=== PATIENT | male | born 1965 | race Caucasian/White ===

== ENCOUNTER 2022-12-23 06:10 | Observation (INO) | payer BC ==
[2022-12-19 09:45] LABS: Specific Gravity 1.005 (1.005-1.030); Urine Bilirubin NEGATIVE (Negative); Urine Blood Negative (Negative); Urine Clarity Clear (Clear); Urine Color Colorless (Yellow); Urine Glucose NEGATIVE (Negative); Urine Protein NEGATIVE (Negative); Urine Urobilinogen Normal (Normal); Urine pH 6.5 (5.0-7.0)
[2022-12-19 09:46] LABS: Absolute Lymphocytes (CBC) 1.5 K/uL (0.7-4.9); Hematocrit 49.8 % (39.6-49.0); Lymphocytes % 19.1 % (15.3-44.8); MCV 92.1 fL (80-100); MPV 9.3 fL (7.6-11.3); RBC Red Blood Cell Count 5.41 M/uL (4.33-5.43)
[2022-12-19 09:55] LABS: Protime INR 1.01
[2022-12-19 10:00] LABS: Albumin 3.9 g/dL (3.4-5.0); Bilirubin Total 0.5 mg/dL (0.2-1.0); Potassium 4.4 mmol/L (3.5-5.1)
--- NOTE | 2022-12-19 10:21 | RAD REPORT ---
EXAM DESCRIPTION: [place] (2 Views)12/19/2022 9:55 am CLINICAL HISTORY: Preop for hip replacement COMPARISON: None FINDINGS: The lungs appear clear of acute infiltrate. The heart is normal size Postsurgical changes involve the cervical spine IMPRESSION: No acute abnormalities displayed
--- NOTE | 2022-12-19 13:14 | EKG ---
Test Date: 2022-12-19 Test Time: 09:15:53 Route Process Administrator: BRE MEASUREMENT RESULTS: Intervals: Rate: 70 MN: 142 QRSD: 82 QT: 348 QTc: 375 [place]: P: 69 MN: 142 QRS: 34 T: 48 INTERPRETIVE STATEMENTS: Normal sinus rhythm with sinus arrhythmia Normal ECG Compared to ECG 12/20/1997 19:12:00 No significant changes Electronically Signed On 12-19-22 13:14:15 BILINGUAL RECEPTIONIST by Prabhu Jimenez
[2022-12-22 11:48] LABS: SARS-CoV-2 Antigen Rapid Res Negative (Negative)
[2022-12-23] MEDS ORDERED: GABAPENTIN 100 MG CAP ONE (06:35)
[2022-12-23] MEDS ORDERED: CELECOXIB 100 MG CAPSULE ONE (06:35)
[2022-12-23] MEDS ORDERED: CEFAZOLIN SODIUM 2 GM/VIAL ONE (06:35)
[2022-12-23] MEDS ORDERED: Ringers Lactate 1,000 ML IV ONE ×2 (06:36→09:56)
[2022-12-23] MEDS ORDERED: ACETAMINOPHEN 500 MG TAB ONE (06:36)
[2022-12-23] MEDS ORDERED: Oxycodone HCl/Acetaminophen 1 TAB TAB ONE (06:36)
[2022-12-23] MEDS ORDERED: FENTANYL CITR 100 MCG/2 ML ONE ×2 (06:53→08:20)
[2022-12-23] MEDS ORDERED: MIDAZOLAM HCL 2 MG/2 ML INJ ONE (06:53)
[2022-12-23] MEDS ORDERED: ROCURONIUM 50 MG/5 ML VIAL IV ONE ×2 (06:53→07:40)
[2022-12-23] MEDS ORDERED: propofoL 200 MG/20 ML VIAL IV ONE (06:53)
[2022-12-23] MEDS ORDERED: LIDOCAINE 2% MPF 5 ML VIAL ONE (06:53)
[2022-12-23] MEDS ORDERED: ONDANSETRON 4 MG/2 ML VIAL ONE (06:54)
[2022-12-23] MEDS: TRANEXAMIC ACID 1,000 MG/10 ML VIAL IV ONE ×5 (07:10→09:35)
[2022-12-23] MEDS ORDERED: EPHEDRINE SULF 50 MG/ML VIAL ONE (07:34)
[2022-12-23] MEDS ORDERED: dexAMETHasone 10 MG/ML VIAL ONE ×2 (07:41→11:26)
--- NOTE | 2022-12-23 09:40 | RAD REPORT ---
EXAM DESCRIPTION: RAD - Hip Right 1 View - 12/23/2022 9:20 am FINDINGS: Two views of the right hip were obtained as an intraoperative evaluation. Surgical hardwar e is in place. There is a rasp or trial prosthesis in the proximal femur appearing well positioned. Acetabular cup i s in place. No suspicious or unexpected findings.
[2022-12-23] MEDS ORDERED: HYDROMORPHONE HCL 1 MG/ML INJ ONE (09:44)
[2022-12-23] MEDS ORDERED: Phenylephrine HCl 10 MG/ML 1 ML VIAL ONE (09:51)
[2022-12-23] MEDS ORDERED: KETOROLAC 30 MG/ML INJ ONE (09:54)
[2022-12-23] MEDS ORDERED: HYDROCODONE/APAP 7.5/325 MG TAB PO PRN (10:18)
[2022-12-23] MEDS ORDERED: ONDANSETRON 4 MG/2 ML VIAL IV PRN (10:18)
[2022-12-23] MEDS ORDERED: DOCUSATE NA 100 MG CAP PO PRN (10:18)
--- NOTE | 2022-12-23 10:18 | P.BOP ---
Preoperative diagnosis: right hip arthritis Postoperative diagnosis: same Primary procedure: right total hip arthoplasty Estimated blood loss: 200 Anesthesia: General Complications: None Transferred to: Recovery Room Condition: Good
--- OUTSIDE RECORDS SUMMARY | 2022-12-23 10:46 | XMS REPORT | Continuity of Care Document ---
:1965 Author Organization [facility] t Address [address] [place] [address] Care Team Providers Name Role Phone Brandon Infante MD Primary Care Physician BRANDON INFANTE Attending Clinician Unavailable Lab, [facility] - Db Attending Clinician Unavailable Brandon Infante MD Attending Clinician Doctor Unassigned, [place] Attending Clinician Unavailable RADIOLOGY Attending Clinician Unavailable Radiology Attending Clinician Unavailable Yue Knight MD Attending Clinician Team, [facility], [place] Attending Clinician UnavailKimber Ruggiero LVN Attending Clinician Unavailable HAMIDA SANCHEZ K.HMarie Attending Clinician Unavailable Rich Vera MD Attending Clinician RICH VERA Attending Clinician Unavailable Hamida Sanchez MD K.HMarie Attending Clinician [facility] Attending Clinician Unavailable GIOVANY COURTNEY Attending Clinician Unavailable Clinic, [facility] Neurology Continuity Attending Clinician Unavail able 2, [facility] Attending Clinician Unavailable YUE YAN Admitting Clinician Unavailable BRANDON INFANTE Admitting Clinician Unavailable Payers Payer Name Policy Type Policy Number Effective Date Expiration Date S sonia [facility] - [id number] 2008 00:00:00 OUT OF STATE Problems Condition Condition Condition Status Onset Resolution Last Treating Co mments Source Name Details Category Date Date Treatment Clinician Date Restless Restless Disease Active Unive rs leg leg 8- ity of syndrome syndrome 00:00: [place] 00 Medical Branch Other Other Disease Active Univers chronic chronic 2-21 ity of pain pain 00:00: 00 Medical Branch Hypogonadi Hypogonadi Disease Active U lisbeth sm male sm male 2-26 ity of 00:00: [place] [facility] Sleep Sleep Disease Active Univers apnea apnea 2-19 ity of 00:00: [place] [facility] Gastroesop Gastroesop Disease Active U lisbeth hageal hageal 2-19 ity of reflux reflux 00:00: [place] disease disease 00 Medical without without Branch esophagiti esophagiti s s Allergies, Adverse Reactions, Alerts Allergy Allergy Status Severity Reaction(s) Onset Inactive Treating Comm ents Source Name Type Date Date Clinician NO KNOWN Drug Active Univers ALLERGIE Class ity of S [facility] Social History Social Habit Start Date Stop Date Quantity Comments Source Exposure to 2022-12-01 2022-12-11 Not sure [facility] SARS-CoV-2 00:00:00 07:08:00 [facility] (event) Branch Alcohol intake 2022-12-11 2022-12-11 Current drinker Unive rsity of 00:00:00 00:00:00 of alcohol [facility] (finding) [place] Tobacco use and 2022-06-26 2022-06-26 Smokeless tobacco Un iversity of exposure 00:00:00 00:00:00 non-user [facility] Education 2021-07-17 2021-07-17 10 University of 00:00:00 00:00:00 [facility] History of 2013-01-11 Cigarette Smoker Universi ty of tobacco use 00:00:00 [facility] Sex [birth year] Universit y of 00:00:00 00:00:00 [facility] Smoking Status Start Date Stop Date Source Ex-smoker 2022-06-26 00:00:00 2022-06-26 00:00:00 Universi ty of [facility] Medications Ordered Filled Start Stop Current Ordering Indication Dosage Frequency Signature Comments Components Source Medication Medication Date Date Medication? Clinician (SIG) Name Name testosteron 2022- No [id number] 300mg Univers e cypionate 12-11 ity of (DEPO-TESTO 15:00: 13:57 [place] STERONE) 00 :00 Medical injection Branch 300 mg testosteron 2022- No [id number] 300mg 300 mg, Univers e cypionate 12-11 Intramuscu i ty of (DEPO-TESTO 15:00: 13:57 lar, ONCE, [place] ST[facility]) 00 :00 1 dose, On Medic al injection Jennifer Branch 300 mg 12/11/22 at 0900, Routine testosteron 2022- No [id number] 300mg Univers e cypionate 12-11 ity of (DEPO-TESTO 15:00: 13:57 [place] STERONE) 00 :00 Medical injection Branch 300 mg testosteron 2022- No [id number] 300mg 300 mg, Univers e cypionate 12-11 Intramuscu i ty of (DEPO-TESTO 15:00: 13:57 lar, ONCE, [place] ST[facility]) 00 :00 1 dose, On Medic al injection Jennifer Branch 300 mg 12/11/22 at 0900, Routine HYDROcodone 2022-0 Yes 2745 1{tbl} Take 1 Un papa -acetaminop 1-19 tablet by ity of hen 10-325 00:00: mouth [place] mg tablet 00 every 6 Medical (six) Branch hours as needed for Pain (scale 4-6). Indication s: chronic pain HYDROcodone 2022-0 Yes 2745 1{tbl} Take 1 Un papa -acetaminop 1-19 tablet by ity of hen 10-325 00:00: mouth [place] mg tablet 00 every 6 Medical (six) Branch hours as needed for Pain (scale 4-6). Indication s: chronic pain HYDROcodone 2022-0 Yes 2745 1{tbl} Take 1 Un papa -acetaminop 1-19 tablet by ity of hen 10-325 00:00: mouth [place] mg tablet 00 every 6 Medical (six) Branch hours as needed for Pain (scale 4-6). Indication s: chronic pain HYDROcodone 2022-0 2022- No 2745 1{tbl} Take 1 U nivers -acetaminop 1-19 -19 tablet by it y of hen 10-325 00:00: 00:00 mouth [place] mg tablet 00 :00 every 6 Medical (six) Branch hours as needed for Pain (scale 4-6). Indication s: chronic pain HYDROcodone 2022- No 2745 1{tbl} Take 1 U nivers -acetaminop 12-11 tablet by it y of hen 10-325 00:00: 00:00 mouth [place] mg tablet 00 :00 every 6 Medical (six) Branch hours as needed for Pain (scale 4-6). Indication s: chronic pain HYDROcodone No 2745 1{tbl} Take 1 U nivers -acetaminop 12-11 tablet by it y of hen 10-325 00:00: 00:00 mouth [place] mg tablet 00 :00 every 6 Medical (six) Branch hours as needed for Pain (scale 4-6). Indication s: chronic pain testosteron 2021-11- No [id number] 300mg Univers e cypionate 2-29 12-29 ity of (DEPO-TESTO 15:00: 13:57 [place] STERONE) 00 :00 Medical injection Branch 300 mg testosteron 2021-11- No [id number] 300mg 300 mg, Univers e cypionate 2- 12- Intramuscu i ty of (DEPO-TESTO 15:00: 13:57 lar, ONCE, [place] ST[facility]) 00 :00 1 dose, On Medic al injection Jennifer Branch 300 mg 11/20/22 at 0900, Routine testosteron 2021-11- No [id number] 300mg Univers e cypionate 2-29 12-29 ity of (DEPO-TESTO 15:00: 13:57 [place] STERONE) 00 :00 Medical injection Branch 300 mg testosteron 2021-11- No [id number] 300mg 300 mg, Univers e cypionate 2- 12-29 Intramuscu i ty of (DEPO-TESTO 15:00: 13:57 lar, ONCE, [place] ST[facility]) 00 :00 1 dose, On Medic al injection Jennifer Branch 300 mg 11/20/22 at 0900, Routine HYDROcodone 2021-11 Yes 2745 1{tbl} Take 1 Un papa -acetaminop 2-27 tablet by ity of hen 10-325 00:00: mouth [place] mg tablet 00 every 6 Medical (six) Branch hours as needed for Pain (scale 4-6). Indication s: chronic pain HYDROcodone 2021-11 Yes 2745 1{tbl} Take 1 Un papa -acetaminop 2-27 tablet by ity of hen 10-325 00:00: mouth [place] mg tablet 00 every 6 Medical (six) Branch hours as needed for Pain (scale 4-6). Indication s: chronic pain HYDROcodone 2021-11 Yes 2745 1{tbl} Take 1 Un papa -acetaminop 2-27 tablet by ity of hen 10-325 00:00: mouth [place] mg tablet 00 every 6 Medical (six) Branch hours as needed for Pain (scale 4-6). Indication s: chronic pain HYDROcodone 2021-11 Yes 2745 1{tbl} Take 1 Un papa -acetaminop 2-27 tablet by ity of hen 10-325 00:00: mouth [place] mg tablet 00 every 6 Medical (six) Branch hours as needed for Pain (scale 4-6). Indication s: chronic pain HYDROcodone 2021-11 Yes 2745 1{tbl} Take 1 Un papa -acetaminop 2-27 tablet by ity of hen 10-325 00:00: mouth [place] mg tablet 00 every 6 Medical (six) Branch hours as needed for Pain (scale 4-6). Indication s: chronic pain HYDROcodone 2021-11- No 2745 1{tbl} Take 1 U nivers -acetaminop 2-27 -19 tablet by it y of hen 10-325 00:00: 00:00 mouth [place] mg tablet 00 :00 every 6 Medical (six) Branch hours as needed for Pain (scale 4-6). Indication s: chronic pain HYDROcodone 2021-11- No 2745 1{tbl} Take 1 U nivers -acetaminop 2-27 -19 tablet by it y of hen 10-325 00:00: 00:00 mouth [place] mg tablet 00 :00 every 6 Medical (six) Branch hours as needed for Pain (scale 4-6). Indication s: chronic pain codeine-gua 2021-11 Yes 5mL Take 5 mL U nivers ifenesin 2-21 by mouth ity of 10-100 mg/5 00:00: every 4 [place] as mL oral 00 (four) Medical solution hours as Branch needed for Cough. Indication s: cough codeine-gua 2021-11 Yes 5mL Take 5 mL U nivers ifenesin 2-21 by mouth ity of 10-100 mg/5 00:00: every 4 [place] as mL oral 00 (four) Medical solution hours as Branch needed for Cough. Indication s: cough codeine-gua 2021-11 Yes 5mL Take 5 mL U nivers ifenesin 2-21 by mouth ity of 10-100 mg/5 00:00: every 4 [place] mL oral 00 (four) Medical solution hours as Branch needed for Cough. Indication s: cough codeine-gua 2021-11 Yes 5mL Take 5 mL U nivers ifenesin 2-21 by mouth ity of 10-100 mg/5 00:00: every 4 [place] mL oral 00 (four) Medical solution hours as Branch needed for Cough. Indication s: cough codeine-gua 2021-11 Yes 5mL Take 5 mL U nivers ifenesin 2-21 by mouth ity of 10-100 mg/5 00:00: every 4 [place] mL oral 00 (four) Medical solution hours as Branch needed for Cough. Indication s: cough codeine-gua 2021-11 Yes 5mL Take 5 mL U nivers ifenesin 2-21 by mouth ity of 10-100 mg/5 00:00: every 4 [place] as mL oral 00 (four) Medical solution hours as Branch needed for Cough. Indication s: cough codeine-gua 2021-11 Yes 5mL Take 5 mL U nivers ifenesin 2-21 by mouth ity of 10-100 mg/5 00:00: every 4 [place] as mL oral 00 (four) Medical solution hours as Branch needed for Cough. Indication s: cough codeine-gua 2021-11 Yes 5mL Take 5 mL U nivers ifenesin 2-21 by mouth ity of 10-100 mg/5 00:00: every 4 [place] as mL oral 00 (four) Medical solution hours as Branch needed for Cough. Indication s: cough codeine-gua 2021-11 Yes 5mL Take 5 mL U nivers ifenesin 2-21 by mouth ity of 10-100 mg/5 00:00: every 4 [place] as mL oral 00 (four) Medical solution hours as Branch needed for Cough. Indication s: cough codeine-gua 2021-11 Yes 5mL Take 5 mL U nivers ifenesin 2-21 by mouth ity of 10-100 mg/5 00:00: every 4 [place] as mL oral 00 (four) Medical solution hours as Branch needed for Cough. Indication s: cough codeine-gua 2021-11 Yes 5mL Take 5 mL U nivers ifenesin 2-21 by mouth ity of 10-100 mg/5 00:00: every 4 [place] as mL oral 00 (four) Medical solution hours as Branch needed for Cough. Indication s: cough codeine-gua 2021-11 Yes 5mL Take 5 mL U nivers ifenesin 2-21 by mouth ity of 10-100 mg/5 00:00: every 4 [place] as mL oral 00 (four) Medical solution hours as Branch needed for Cough. Indication s: cough testosteron 2021-11- No [id number] 300mg Univers e cypionate 12-31 ity of (DEPO-TESTO 14:45: 13:50 [place] STERONE) 00 :00 Medical injection Branch 300 mg testosteron 2021-11- No [id number] 300mg 300 mg, Univers e cypionate 12-31 Intramuscu i ty of (DEPO-TESTO 14:45: 13:50 lar, ONCE, [place] STERONE) 00 :00 1 dose, On Medic al injection Jennifer Branch 300 mg 10/30/22 at 0845, Routine testosteron 2021-11- No [id number] 300mg Univers e cypionate 12-31 ity of (DEPO-TESTO 14:45: 13:50 [place] STERONE) 00 :00 Medical injection Branch 300 mg testosteron 2021-11- No [id number] 300mg 300 mg, Univers e cypionate 12-31 Intramuscu i ty of (DEPO-TESTO 14:45: 13:50 lar, ONCE, [place] ST[facility]) 00 :00 1 dose, On Medic al injection Jennifer Branch 300 mg 10/30/22 at 0845, Routine azithromyci 2021-11 Yes [id number] 250mg Take 1 Univers n 250 mg 2- tablet by ity of tablet 00:00: mouth in [place] 00 the Medical morning. Branch Take 500 mg day 1, then 250 mg days 2 to 5. azithromyci 2021- Yes [id number] 250mg Take 1 Univers n 250 mg 2-08 tablet by ity of tablet 00:00: mouth in [place] 00 the Medical morning. Branch Take 500 mg day 1, then 250 mg days 2 to 5. azithromyci 2021- Yes [id number] 250mg Take 1 Univers n 250 mg 2-08 tablet by ity of tablet 00:00: mouth in [place] 00 the Medical morning. Branch Take 500 mg day 1, then 250 mg days 2 to 5. azithromyci 2021- Yes [id number] 250mg Take 1 Univers n 250 mg 2-08 tablet by ity of tablet 00:00: mouth in [place] 00 the Medical morning. Branch Take 500 mg day 1, then 250 mg days 2 to 5. azithromyci 2021- Yes [id number] 250mg Take 1 Univers n 250 mg 2-08 tablet by ity of tablet 00:00: mouth in [place] 00 the Medical morning. Branch Take 500 mg day 1, then 250 mg days 2 to 5. azithromyci 2021- Yes [id number] 250mg Take 1 Univers n 250 mg 2-08 tablet by ity of tablet 00:00: mouth in [place] 00 the Medical morning. Branch Take 500 mg day 1, then 250 mg days 2 to 5. azithromyci 2021- Yes [id number] 250mg Take 1 Univers n 250 mg 2-08 tablet by ity of tablet 00:00: mouth in [place] 00 the Medical morning. Branch Take 500 mg day 1, then 250 mg days 2 to 5. azithromyci 2021- Yes [id number] 250mg Take 1 Univers n 250 mg 2-08 tablet by ity of tablet 00:00: mouth in [place] 00 the Medical morning. Branch Take 500 mg day 1, then 250 mg days 2 to 5. azithromyci 2021- Yes [id number] 250mg Take 1 Univers n 250 mg 2-08 tablet by ity of tablet 00:00: mouth in [place] 00 the Medical morning. Branch Take 500 mg day 1, then 250 mg days 2 to 5. azithromyci 2021-3- No [id number] 250mg Take 1 Univers n 250 mg 2-08 12-11 tablet by ity o f tablet 00:00: 00:00 mouth in [place] 00 :00 the Medical morning. Branch Take 500 mg day 1, then 250 mg days 2 to 5. azithromyci 2021-11- No [id number] 250mg Take 1 Univers n 250 mg 12-31 tablet by ity o f tablet 00:00: 00:00 mouth in [place] 00 :00 the Medical morning. Branch Take 500 mg day 1, then 250 mg days 2 to 5. codeine-gua 2021-11- Yes 5mL Take 5 mL Univers ifenesin 12-31 by mouth ity of 10-100 mg/5 00:00: 05:59 every 4 [place] mL oral 00 :00 (four) Medical solution hours as Branch needed for Cough for up to 7 days. Indication s: cough codeine-gua 2021-11- Yes 5mL Take 5 mL Univers ifenesin 12-31 by mouth ity of 10-100 mg/5 00:00: 05:59 every 4 [place] mL oral 00 :00 (four) Medical solution hours as Branch needed for Cough for up to 7 days. Indication s: cough HYDROcodone 2021-11 Yes 2745 1{tbl} Take 1 Un papa -acetaminop 2-07 tablet by ity of hen 10-325 00:00: mouth [place] mg tablet 00 every 6 Medical (six) Branch hours as needed for Pain (scale 4-6). Indication s: chronic pain HYDROcodone 2021-11 Yes 2745 1{tbl} Take 1 Un papa -acetaminop 2-07 tablet by ity of hen 10-325 00:00: mouth [place] mg tablet 00 every 6 Medical (six) Branch hours as needed for Pain (scale 4-6). Indication s: chronic pain HYDROcodone 2021-11 Yes 2745 1{tbl} Take 1 Un papa -acetaminop 2-07 tablet by ity of hen 10-325 00:00: mouth [place] mg tablet 00 every 6 Medical (six) Branch hours as needed for Pain (scale 4-6). Indication s: chronic pain HYDROcodone 2021-11 Yes 2745 1{tbl} Take 1 Un papa -acetaminop 2-07 tablet by ity of hen 10-325 00:00: mouth [place] mg tablet 00 every 6 Medical (six) Branch hours as needed for Pain (scale 4-6). Indication s: chronic pain HYDROcodone 2021-11 Yes 2745 1{tbl} Take 1 Un papa -acetaminop 2-07 tablet by ity of hen 10-325 00:00: mouth [place] mg tablet 00 every 6 Medical (six) Branch hours as needed for Pain (scale 4-6). Indication s: chronic pain HYDROcodone 2021-11- No 2745 1{tbl} Take 1 U nivers -acetaminop 2-07 12-25 tablet by it y of hen 10-325 00:00: 00:00 mouth [place] mg tablet 00 :00 every 6 Medical (six) Branch hours as needed for Pain (scale 4-6). Indication s: chronic pain HYDROcodone 2021-11 Yes 2745 1{tbl} Take 1 Un papa -acetaminop 1-22 tablet by ity of hen 10-325 00:00: mouth [place] mg tablet 00 every 6 Medical (six) Branch hours as needed for Pain (scale 4-6). Indication s: chronic pain HYDROcodone 2021-11 No 2745 1{tbl} Take 1 U nivers -acetaminop 1-22 12-06 tablet by it y of hen 10-325 00:00: 00:00 mouth [place] mg tablet 00 :00 every 6 Medical (six) Branch hours as needed for Pain (scale 4-6). Indication s: chronic pain testosteron 2021-11- No [id number] 300mg Univers e cypionate 1-17 - ity of (DEPO-TESTO 17:15: 16:18 [place] [facility] :00 Medical injection Branch 300 mg testosteron 2021-11- No [id number] 300mg 300 mg, Univers e cypionate -17 - Intramuscu i ty of (DEPO-TESTO 17:15: 16:18 lar, ONCE, [place] [facility] 00 :00 1 dose, On Medic al injection Jennifer Branch 300 mg 10/09/22 at 1115, Routine testosteron 2021-11- No [id number] 300mg Univers e cypionate -17 - ity of (DEPO-TESTO 17:15: 16:18 [place] STERONE) 00 :00 Medical injection Branch 300 mg testosteron 2021-11- No [id number] 300mg 300 mg, Univers e cypionate 12-09 Intramuscu i ty of (DEPO-TESTO 17:15: 16:18 lar, ONCE, [place] [facility] 00 :00 1 dose, On Medic al injection Jennifer Branch 300 mg 10/09/22 at 1115, Routine rOPINIRole 2021-11 Yes [id number] 1mg Take 1 U nivers 1 mg tablet 1-17 tablet by ity of 00:00: mouth at [place] [address] bedtime. Medical Branch rOPINIRole 2021-11 Yes [id number] 1mg Take 1 U nivers 1 mg tablet 1-17 tablet by ity of 00:00: mouth at [place] [address] bedtime. Medical Branch rOPINIRole 2021-11 Yes [id number] 1mg Take 1 U nivers 1 mg tablet 1-17 tablet by ity of 00:00: mouth at [place] [address] bedtime. Medical Branch rOPINIRole 2021-11 Yes [id number] 1mg Take 1 U nivers 1 mg tablet 1-17 tablet by ity of 00:00: mouth at [place] [address] bedtime. Medical Branch rOPINIRole 2021-11 Yes [id number] 1mg Take 1 U nivers 1 mg tablet 1-17 tablet by ity of 00:00: mouth at [place] [address] bedtime. Medical Branch rOPINIRole 2021-11 Yes [id number] 1mg Take 1 U nivers 1 mg tablet 1-17 tablet by ity of 00:00: mouth at [place] [address] bedtime. Medical Branch rOPINIRole 2021-11 Yes [id number] 1mg Take 1 U nivers 1 mg tablet 1-17 tablet by ity of 00:00: mouth at [place] [address] bedtime. Medical Branch rOPINIRole 2021-11 Yes [id number] 1mg Take 1 U nivers 1 mg tablet 1-17 tablet by ity of 00:00: mouth at [place] [address] bedtime. Medical Branch rOPINIRole 2021-11 Yes [id number] 1mg Take 1 U nivers 1 mg tablet 1-17 tablet by ity of 00:00: mouth at [place] [address] bedtime. Medical Branch rOPINIRole 2021-11 Yes [id number] 1mg Take 1 U nivers 1 mg tablet 1-17 tablet by ity of 00:00: mouth at [place] [address] bedtime. Medical Branch rOPINIRole 2021-11 Yes [id number] 1mg Take 1 U nivers 1 mg tablet 1-17 tablet by ity of 00:00: mouth at [place] [address] bedtime. Medical Branch rOPINIRole 2021-11 Yes [id number] 1mg Take 1 U nivers 1 mg tablet 1-17 tablet by ity of 00:00: mouth at [place] [address] bedtime. Medical Branch rOPINIRole 2021-11 Yes [id number] 1mg Take 1 U nivers 1 mg tablet 1-17 tablet by ity of 00:00: mouth at [place] [address] bedtime. Medical Branch rOPINIRole 2021-11 Yes [id number] 1mg Take 1 U nivers 1 mg tablet 1-17 tablet by ity of 00:00: mouth at [place] [address] bedtime. Medical Branch rOPINIRole 2021-11 Yes [id number] 1mg Take 1 U nivers 1 mg tablet 1-17 tablet by ity of 00:00: mouth at [place] [address] bedtime. Medical Branch rOPINIRole 2021-11 Yes [id number] 1mg Take 1 U nivers 1 mg tablet 1-17 tablet by ity of 00:00: mouth at [place] [address] bedtime. Medical Branch rOPINIRole 2021-11 Yes [id number] 1mg Take 1 U nivers 1 mg tablet 1-17 tablet by ity of 00:00: mouth at [place] [address] bedtime. Medical Branch rOPINIRole 2021-11 Yes [id number] 1mg Take 1 U nivers 1 mg tablet 1-17 tablet by ity of 00:00: mouth at [place] [address] bedtime. Medical Branch lansoprazol 2021-11 Yes [id number] 30mg Take 1 Univers e 30 mg 1-10 capsule by ity of capsule 00:00: mouth in [place] 00 the Medical morning. Branch HYDROcodone 2021-11 Yes [id number] 1{tbl} Take 1 Un papa -acetaminop 1-10 tablet by ity of hen 10-325 00:00: mouth [place] mg tablet 00 every 6 Medical (six) Branch hours as needed for Pain (scale 4-6). Indication s: chronic pain lansoprazol 2021-11 Yes [id number] 30mg Take 1 Univers e 30 mg 1-10 capsule by ity of capsule 00:00: mouth in [place] 00 the Medical morning. Branch lansoprazol 2021-11 Yes [id number] 30mg Take 1 Univers e 30 mg 1-10 capsule by ity of capsule 00:00: mouth in [place] 00 the Medical morning. Branch HYDROcodone 2021-11 Yes 2745 1{tbl} Take 1 Un papa -acetaminop 1-10 tablet by ity of hen 10-325 00:00: mouth [place] mg tablet 00 every 6 Medical (six) Branch hours as needed for Pain (scale 4-6). Indication s: chronic pain lansoprazol 2021-11 Yes [id number] 30mg Take 1 Univers e 30 mg 1-10 capsule by ity of capsule 00:00: mouth in [place] 00 the Medical morning. Branch HYDROcodone 2021-11 Yes [id number] 1{tbl} Take 1 Un papa -acetaminop 1-10 tablet by ity of hen 10-325 00:00: mouth [place] mg tablet 00 every 6 Medical (six) Branch hours as needed for Pain (scale 4-6). Indication s: chronic pain lansoprazol 2021-11 Yes [id number] 30mg Take 1 Univers e 30 mg 1-10 capsule by ity of capsule 00:00: mouth in [place] 00 the Medical morning. Branch lansoprazol 2021-11 Yes [id number] 30mg Take 1 Univers e 30 mg 1-10 capsule by ity of capsule 00:00: mouth in [place] 00 the Medical morning. Branch lansoprazol 2021-11 Yes [id number] 30mg Take 1 Univers e 30 mg 1-10 capsule by ity of capsule 00:00: mouth in [place] 00 the Medical morning. Branch lansoprazol 2021-11 Yes [id number] 30mg Take 1 Univers e 30 mg 1-10 capsule by ity of capsule 00:00: mouth in [place] 00 the Medical morning. Branch lansoprazol 2021-11 Yes [id number] 30mg Take 1 Univers e 30 mg 1-10 capsule by ity of capsule 00:00: mouth in [place] 00 the Medical morning. Branch lansoprazol 2021-11 Yes [id number] 30mg Take 1 Univers e 30 mg 1-10 capsule by ity of capsule 00:00: mouth in [place] 00 the Medical morning. Branch lansoprazol 2021-11 Yes [id number] 30mg Take 1 Univers e 30 mg 1-10 capsule by ity of capsule 00:00: mouth in [place] 00 the Medical morning. [place] lansoprazol 2021-11 Yes [id number] 30mg Take 1 Univers e 30 mg 1-10 capsule by ity of capsule 00:00: mouth in [place] 00 the Medical morning. [place] lansoprazol 2021-11 Yes [id number] 30mg Take 1 Univers e 30 mg 1-10 capsule by ity of capsule 00:00: mouth in [place] 00 the Medical morning. [place] lansoprazol 2021-11 Yes [id number] 30mg Take 1 Univers e 30 mg 1-10 capsule by ity of capsule 00:00: mouth in [place] 00 the Medical morning. [place] lansoprazol 2021-11 Yes [id number] 30mg Take 1 Univers e 30 mg 1-10 capsule by ity of capsule 00:00: mouth in [place] 00 the Medical morning. [place] lansoprazol 2021-11 Yes [id number] 30mg Take 1 Univers e 30 mg 1-10 capsule by ity of capsule 00:00: mouth in [place] 00 the Medical morning. [place] lansoprazol 2021-11 Yes [id number] 30mg Take 1 Univers e 30 mg 1-10 capsule by ity of capsule 00:00: mouth in [place] 00 the Medical morning. [place] lansoprazol 2021-11 Yes [id number] 30mg Take 1 Univers e 30 mg 1-10 capsule by ity of capsule 00:00: mouth in [place] 00 the Medical morning. [place] lansoprazol 2021-11 Yes [id number] 30mg Take 1 Univers e 30 mg 1-10 capsule by ity of capsule 00:00: mouth in [place] 00 the Medical morning. [place] lansoprazol 2021-11 Yes [id number] 30mg Take 1 Univers e 30 mg 1-10 capsule by ity of capsule 00:00: mouth in [place] 00 the Medical morning. [place] HYDROcodone 2021-11- No 2745 1{tbl} Take 1 U nivers -acetaminop 1-10 11-21 tablet by it y of hen 10-325 00:00: 00:00 mouth [place] mg tablet 00 :00 every 6 Medical (six) Branch hours as needed for Pain (scale 4-6). Indication s: chronic pain testosteron 2021-11 No [id number] 300mg Univers e cypionate 0-27 10-27 ity of (DEPO-TESTO 16:15: 15:40 [place] ST[facility]) 00 :00 Medical injection Branch 300 mg testosteron 2021-11 No [id number] 300mg 300 mg, Univers e cypionate 0-27 10-27 Intramuscu i ty of (DEPO-TESTO 16:15: 15:40 lar, ONCE, [place] ST[facility]) 00 :00 1 dose, On Medic al injection Jennifer Branch 300 mg 09/18/22 at 1115, Routine testosteron 2021-11 No [id number] 300mg Univers e cypionate 0-27 10-27 ity of (DEPO-TESTO 16:15: 15:40 [place] ST[facility]) 00 :00 Medical injection Branch 300 mg testosteron 2021-11 No [id number] 300mg 300 mg, Univers e cypionate 0-27 10-27 Intramuscu i ty of (DEPO-TESTO 16:15: 15:40 lar, ONCE, [place] [facility]) 00 :00 1 dose, On Medic al injection Jennifer Branch 300 mg 09/18/22 at 1115, Routine HYDROcodone 2021-11 Yes [id number] 1{tbl} Take 1 Un papa -acetaminop 0-27 tablet by ity of hen 10-325 00:00: mouth [place] mg tablet 00 every 6 Medical (six) Branch hours as needed for Pain (scale 4-6). Indication s: chronic pain HYDROcodone 2021-11 Yes 2745 1{tbl} Take 1 Un papa -acetaminop 0-27 tablet by ity of hen 10-325 00:00: mouth [place] mg tablet 00 every 6 Medical (six) Branch hours as needed for Pain (scale 4-6). Indication s: chronic pain HYDROcodone 2021-11 No 2745 1{tbl} Take 1 U nivers -acetaminop 0-27 11-10 tablet by it y of hen 10-325 00:00: 00:00 mouth [place] mg tablet 00 :00 every 6 Medical (six) Branch hours as needed for Pain (scale 4-6). Indication s: chronic pain HYDROcodone 2021-11 Yes 2745 1{tbl} Take 1 Un papa -acetaminop 0-10 tablet by ity of hen 10-325 00:00: mouth [place] mg tablet 00 every 6 Medical (six) Branch hours as needed for Pain (scale 4-6). Indication s: chronic pain HYDROcodone 2021-11 Yes 2745 1{tbl} Take 1 Un papa -acetaminop 0-10 tablet by ity of hen 10-325 00:00: mouth [place] mg tablet 00 every 6 Medical (six) Branch hours as needed for Pain (scale 4-6). Indication s: chronic pain HYDROcodone 2021-11 No 2745 1{tbl} Take 1 U nivers -acetaminop 0-10 10-27 tablet by it y of hen 10-325 00:00: 00:00 mouth [place] mg tablet 00 :00 every 6 Medical (six) Branch hours as needed for Pain (scale 4-6). Indication s: chronic pain HYDROcodone 2021-11 No 2745 1{tbl} Take 1 U nivers -acetaminop 0-10 10-27 tablet by it y of hen 10-325 00:00: 00:00 mouth [place] mg tablet 00 :00 every 6 Medical (six) Branch hours as needed for Pain (scale 4-6). Indication s: chronic pain testosteron 2021-11 No [id number] 300mg Univers e cypionate 0-06 -06 ity of (DEPO-TESTO 14:45: 14:12 [place] STERONE) 00 :00 Medical injection Branch 300 mg testosteron 2021-11- No [id number] 300mg 300 mg, Univers e cypionate 0-06 08-28 Intramuscu i ty of (DEPO-TESTO 14:45: 14:12 lar, ONCE, [place] STERONE) 00 :00 1 dose, On Medic al injection Jennifer Branch 300 mg 08/28/22 at 0945, Routine testosteron 2021-11- No [id number] 300mg Univers e cypionate 0-06 10-06 ity of (DEPO-TESTO 14:45: 14:12 [place] STERONE) 00 :00 Medical injection Branch 300 mg testosteron 2021-11 No [id number] 300mg 300 mg, Univers e cypionate 006 08-28 Intramuscu i ty of (DEPO-TESTO 14:45: 14:12 lar, ONCE, [place] STERONE) 00 :00 1 dose, On Medic al injection [place] Branch 300 mg 08/28/22 at 0945, Routine HYDROcodone 2021-0 Yes 2745 1{tbl} Take 1 Un papa -acetaminop 9-29 tablet by ity of hen 10-325 00:00: mouth [place] mg tablet 00 every 6 Medical (six) Branch hours as needed for Pain (scale 4-6). Indication s: chronic pain HYDROcodone Yes 2745 1{tbl} Take 1 Un papa -acetaminop 9-29 tablet by ity of hen 10-325 00:00: mouth [place] mg tablet 00 every 6 Medical (six) Branch hours as needed for Pain (scale 4-6). Indication s: chronic pain HYDROcodone Yes 2745 1{tbl} Take 1 Un papa -acetaminop 9-29 tablet by ity of hen 10-325 00:00: mouth [place] mg tablet 00 every 6 Medical (six) Branch hours as needed for Pain (scale 4-6). Indication s: chronic pain HYDROcodone Yes 2745 1{tbl} Take 1 Un papa -acetaminop 9-29 tablet by ity of hen 10-325 00:00: mouth [place] mg tablet 00 every 6 Medical (six) Branch hours as needed for Pain (scale 4-6). Indication s: chronic pain HYDROcodone 2021- No 2745 1{tbl} Take 1 U nivers -acetaminop 9-29 - tablet by it y of hen 10-325 00:00: 00:00 mouth [place] mg tablet 00 :00 every 6 Medical (six) Branch hours as needed for Pain (scale 4-6). Indication s: chronic pain ROPINIROLE Yes [id number] TAKE ONE Univers 1 mg tablet 9-19 TABLET BY ity of 00:00: MOUTH [place] 00 EVERY Medical NIGHT AT Branch BEDTIME ROPINIROLE 2021-0 Yes [id number] TAKE ONE Univers 1 mg tablet 9-19 TABLET BY ity of 00:00: MOUTH [place] 00 EVERY Medical NIGHT AT Branch BEDTIME ROPINIROLE 2022-0 Yes [id number] TAKE ONE Univers 1 mg tablet 9-19 TABLET BY ity of 00:00: MOUTH [place] 00 EVERY Medical NIGHT AT Branch BEDTIME ROPINIROLE 2-0 Yes [id number] TAKE ONE Univers 1 mg tablet 9-19 TABLET BY ity of 00:00: MOUTH [place] 00 EVERY Medical NIGHT AT Branch BEDTIME ROPINIROLE 2-0 Yes [id number] TAKE ONE Univers 1 mg tablet 9-19 TABLET BY ity of 00:00: MOUTH [place] 00 EVERY Medical NIGHT AT Branch BEDTIME ROPINIROLE 2021-0 Yes [id number] TAKE ONE Univers 1 mg tablet 9-19 TABLET BY ity of 00:00: MOUTH [place] 00 EVERY Medical NIGHT AT Branch BEDTIME ROPINIROLE 2021-0 Yes [id number] TAKE ONE Univers 1 mg tablet 9-19 TABLET BY ity of 00:00: MOUTH [place] 00 EVERY Medical NIGHT AT Branch BEDTIME ROPINIROLE 2021-0 Yes [id number] TAKE ONE Univers 1 mg tablet 9-19 TABLET BY ity of 00:00: MOUTH [place] 00 EVERY Medical NIGHT AT Branch BEDTIME ROPINIROLE 2021-0 Yes [id number] TAKE ONE Univers 1 mg tablet 9-19 TABLET BY ity of 00:00: MOUTH [place] 00 EVERY Medical NIGHT AT Branch BEDTIME ROPINIROLE 2021-0 Yes [id number] TAKE ONE Univers 1 mg tablet 9-19 TABLET BY ity of 00:00: MOUTH [place] 00 EVERY Medical NIGHT AT Branch BEDTIME ROPINIROLE 2021-0 Yes [id number] TAKE ONE Univers 1 mg tablet 9-19 TABLET BY ity of 00:00: MOUTH [place] 00 EVERY Medical NIGHT AT Branch BEDTIME ROPINIROLE 2021-0 2- No [id number] TAKE ONE Univers 1 mg tablet 9-19 11-17 TABLET BY it y of 00:00: 00:00 MOUTH [place] 00 :00 EVERY Medical NIGHT AT Branch BEDTIME ROPINIROLE 2021-0 2021- No [id number] TAKE ONE Univers 1 mg tablet 9-19 11-17 TABLET BY it y of 00:00: 00:00 MOUTH [place] 00 :00 EVERY Medical NIGHT AT Branch BEDTIME testosteron 2021-0 2- No [id number] 300mg Univers e cypionate 08-07 ity of (DEPO-TESTO 13:45: 12:48 [place] STERONE) 00 :00 Medical injection Branch 300 mg testosteron 2021- No [id number] 300mg 300 mg, Univers e cypionate 08-07 Intramuscu i ty of (DEPO-TESTO 13:45: 12:48 lar, ONCE, [place] STERONE) 00 :00 1 dose, On Medic al injection Jennifer Branch 300 mg 08/07/22 at 0845, Routine testosteron 2021- No [id number] 300mg Univers e cypionate 08-07 ity of (DEPO-TESTO 13:45: 12:48 [place] STERONE) 00 :00 Medical injection Branch 300 mg testosteron 2021- No [id number] 300mg 300 mg, Univers e cypionate 08-07 Intramuscu i ty of (DEPO-TESTO 13:45: 12:48 lar, ONCE, [place] STERONE) 00 :00 1 dose, On Medic al injection Jennifer Branch 300 mg 08/07/22 at 0845, Routine HYDROcodone Yes 2745 1{tbl} Take 1 Un papa -acetaminop 9-07 tablet by ity of hen 10-325 00:00: mouth [place] mg tablet 00 every 6 Medical (six) Branch hours as needed for Pain (scale 4-6). Indication s: chronic pain HYDROcodone Yes 2745 1{tbl} Take 1 Un papa -acetaminop 9-07 tablet by ity of hen 10-325 00:00: mouth [place] mg tablet 00 every 6 Medical (six) Branch hours as needed for Pain (scale 4-6). Indication s: chronic pain HYDROcodone Yes 2745 1{tbl} Take 1 Un papa -acetaminop 9-07 tablet by ity of hen 10-325 00:00: mouth [place] mg tablet 00 every 6 Medical (six) Branch hours as needed for Pain (scale 4-6). Indication s: chronic pain HYDROcodone Yes 2745 1{tbl} Take 1 Un papa -acetaminop 9-07 tablet by ity of hen 10-325 00:00: mouth [place] mg tablet 00 every 6 Medical (six) Branch hours as needed for Pain (scale 4-6). Indication s: chronic pain HYDROcodone 2021- No 2745 1{tbl} Take 1 U nivers -acetaminop 9-05 31- tablet by it y of hen 10-325 00:00: 00:00 mouth [place] mg tablet 00 :00 every 6 Medical (six) Branch hours as needed for Pain (scale 4-6). Indication s: chronic pain testosteron 2021- No [id number] 300mg Univers e cypionate 07-17 ity of (DEPO-TESTO 13:45: 12:45 [place] STERONE) 00 :00 Medical injection Branch 300 mg testosteron 2021- No [id number] 300mg 300 mg, Univers e cypionate 07-17 Intramuscu i ty of (DEPO-TESTO 13:45: 12:45 lar, ONCE, [place] STERONE) 00 :00 1 dose, On Medic al injection Jennifer Branch 300 mg 07/17/22 at 0845, Routine HYDROcodone Yes 2745 1{tbl} Take 1 Un papa -acetaminop 8-22 tablet by ity of hen 10-325 00:00: mouth [place] mg tablet 00 every 6 Medical (six) Branch hours as needed for Pain (scale 4-6). Indication s: chronic pain HYDROcodone 2021- No 2745 1{tbl} Take 1 U nivers -acetaminop 8-22 - tablet by it y of hen 10-325 00:00: 00:00 mouth [place] mg tablet 00 :00 every 6 Medical (six) Branch hours as needed for Pain (scale 4-6). Indication s: chronic pain LANSOPRAZOL Yes [id number] TAKE ONE Univers E 30 mg 5-02 CAPSULE BY ity of capsule 00:00: MOUTH [place] DAILY Medical Branch LANSOPRAZOL Yes [id number] TAKE ONE Univers E 30 mg 5-02 CAPSULE BY ity of capsule 00:00: MOUTH [place] DAILY Medical Branch LANSOPRAZOL Yes [id number] TAKE ONE Univers E 30 mg 5-02 CAPSULE BY ity of capsule 00:00: MOUTH [place] DAILY Medical Branch LANSOPRAZOL Yes [id number] TAKE ONE Univers E 30 mg 5-02 CAPSULE BY ity of capsule 00:00: MOUTH [place] 00 DAILY Medical Branch LANSOPRAZOL 2021-0 Yes [id number] TAKE ONE Univers E 30 mg 5-02 CAPSULE BY ity of capsule 00:00: MOUTH [place] DAILY Medical Branch LANSOPRAZOL 2021-0 Yes [id number] TAKE ONE Univers E 30 mg 5-02 CAPSULE BY ity of capsule 00:00: MOUTH [place] DAILY Medical Branch LANSOPRAZOL 2021-0 Yes [id number] TAKE ONE Univers E 30 mg 5-02 CAPSULE BY ity of capsule 00:00: MOUTH [place] 00 DAILY Medical Branch LANSOPRAZOL 2021-0 Yes [id number] TAKE ONE Univers E 30 mg 5-02 CAPSULE BY ity of capsule 00:00: MOUTH [place] DAILY Medical Branch LANSOPRAZOL 0 Yes [id number] TAKE ONE Univers E 30 mg 5-02 CAPSULE BY ity of capsule 00:00: MOUTH [place] DAILY Medical Branch LANSOPRAZOL 2021-0 Yes [id number] TAKE ONE Univers E 30 mg 5-02 CAPSULE BY ity of capsule 00:00: MOUTH [place] DAILY Medical Branch LANSOPRAZOL 2021-0 Yes [id number] TAKE ONE Univers E 30 mg 5-02 CAPSULE BY ity of capsule 00:00: MOUTH [place] DAILY Medical Branch LANSOPRAZOL 2021-0 Yes [id number] TAKE ONE Univers E 30 mg 5-02 CAPSULE BY ity of capsule 00:00: MOUTH [place] DAILY Medical Branch LANSOPRAZOL 2021-0 Yes [id number] TAKE ONE Univers E 30 mg 5-02 CAPSULE BY ity of capsule 00:00: MOUTH [place] 00 DAILY Medical Branch LANSOPRAZOL 2021-0 2021- No [id number] TAKE ONE Univers E 30 mg 5-02 11-10 CAPSULE BY ity o f capsule 00:00: 00:00 MOUTH [place] 00 :00 DAILY Medical Branch rOPINIRole 2020-11 Yes [id number] 1mg Take 1 U nivers 1 mg tablet 1-18 tablet by ity of 00:00: mouth at [place] 00 bedtime. Medical Branch rOPINIRole 2020-11 Yes [id number] 1mg Take 1 U nivers 1 mg tablet 1-18 tablet by ity of 00:00: mouth at [place] 00 bedtime. Medical Branch rOPINIRole 2020-2021- No [id number] 1mg Take 1 Univers 1 mg tablet 12-10- tablet by it y of 00:00: 00:00 mouth at [place] 00 :00 bedtime. [facility] Branch rOPINIRole 2020-2021- No [id number] 1mg Take 1 Univers 1 mg tablet 118 - tablet by it y of 00:00: 00:00 mouth at [place] 00 :00 bedtime. [facility] Branch rOPINIRole 2020-2021- No [id number] 1mg Take 1 Univers 1 mg tablet 12-10- tablet by it y of 00:00: 00:00 mouth at [place] 00 :00 bedtime. Medical Branch methylPREDN 2020-0 Yes [id number] 84mg Take 21 Univers ISolone 6-10 [id number] tablets by ity of (MEDROL, 00:00: mouth [place] PING,) 4 mg 00 SEE-INSTRU Med ical tablets CTIONS. Branch follow package directions methylPREDN 2020-0 Yes [id number] 84mg Take 21 Univers ISolone 6-10 [id number] tablets by ity of (MEDROL, 00:00: mouth [place] PING,) 4 mg 00 SEE-INSTRU Med ical tablets CTIONS. Branch follow package directions methylPREDN 2020-0 Yes [id number] 84mg Take 21 Univers ISolone 6-10 [id number] tablets by ity of (MEDROL, 00:00: mouth [place] PING,) 4 mg 00 SEE-INSTRU Med ical tablets CTIONS. Branch follow package directions methylPREDN 2020-0 Yes [id number] 84mg Take 21 Univers ISolone 6-10 [id number] tablets by ity of (MEDROL, 00:00: mouth [place] PING,) 4 mg 00 SEE-INSTRU Med ical tablets CTIONS. Branch follow package directions methylPREDN 2021-0 Yes [id number] 84mg Take 21 Univers ISolone 6-10 [id number] tablets by ity of (MEDROL, 00:00: mouth [place] PING,) 4 mg 00 SEE-INSTRU Med ical tablets CTIONS. Branch follow package directions methylPREDN 2021-0 Yes [id number] 84mg Take 21 Univers ISolone 6-10 [id number] tablets by ity of (MEDROL, 00:00: mouth [place] PING,) 4 mg 00 SEE-INSTRU Med ical tablets CTIONS. Branch follow package directions methylPREDN 2020-0 Yes [id number] 84mg Take 21 Univers ISolone 6-10 [id number] tablets by ity of (MEDROL, 00:00: mouth [place] PING,) 4 mg 00 SEE-INSTRU Med ical tablets CTIONS. Branch follow package directions methylPREDN 0 2- No [id number] 84mg Take 21 Univers ISolone 6-10 - [id number] tablets by ity of (MEDROL, 00:00: 00:00 mouth [place] PING,) 4 mg 00 :00 SEE-INSTRU Med ical tablets CTIONS. Branch follow package directions methylPREDN 0 2021- No [id number] 84mg Take 21 Univers ISolone 6-10 - [id number] tablets by ity of (MEDROL, 00:00: 00:00 mouth [place] PING,) 4 mg 00 :00 SEE-INSTRU Med ical tablets CTIONS. Branch follow package directions fluticasone 0 Yes Univer s 50 3-09 ity of mcg/actuati 00:00: [place] on nasal 00 Medical spray Branch fluticasone 0 Yes Univer s 50 3-09 ity of mcg/actuati 00:00: [place] on nasal 00 Medical spray Branch fluticasone 2015-0 Yes Univer s 50 3-09 ity of mcg/actuati 00:00: [place] on nasal 00 Medical spray Branch fluticasone 2015-0 Yes Univer s 50 3-09 ity of mcg/actuati 00:00: [place] on nasal 00 Medical spray Branch fluticasone 2015-0 Yes Univer s 50 3-09 ity of mcg/actuati 00:00: [place] on nasal 00 Medical spray Branch fluticasone 2015-0 Yes Univer s 50 3-09 ity of mcg/actuati 00:00: [place] on nasal 00 Medical spray Branch fluticasone 2015-0 Yes Univer s 50 3-09 ity of mcg/actuati 00:00: [place] on nasal 00 Medical spray Branch fluticasone 2015-0 Yes Univer s 50 3-09 ity of mcg/actuati 00:00: [place] on nasal 00 Medical spray Branch fluticasone 2015-0 Yes Univer s 50 3-09 ity of mcg/actuati 00:00: [place] on nasal 00 Medical spray Branch fluticasone 2016-0 Yes Univer s 50 3-09 ity of mcg/actuati 00:00: [place] on nasal 00 Medical spray Branch fluticasone [id number] Yes Univer s 50 3-09 ity of mcg/actuati 00:00: [place] on nasal 00 Medical spray Branch fluticasone 2016-0 Yes Univer s 50 3-09 ity of mcg/actuati 00:00: [place] on nasal 00 Medical spray Branch fluticasone 20160 Yes Univer s 50 3-09 ity of mcg/actuati 00:00: [place] on nasal 00 Medical spray Branch fluticasone 20160 Yes Univer s 50 3-09 ity of mcg/actuati 00:00: [place] on nasal 00 Medical spray Branch fluticasone 20160 Yes Univer s 50 3-09 ity of mcg/actuati 00:00: [place] on nasal 00 Medical spray Branch fluticasone 20160 Yes Univer s 50 3-09 ity of mcg/actuati 00:00: [place] on nasal 00 Medical spray Branch fluticasone 20160 Yes Univer s 50 3-09 ity of mcg/actuati 00:00: [place] on nasal 00 Medical spray Branch fluticasone 20160 Yes Univer s 50 3-09 ity of mcg/actuati 00:00: [place] on nasal 00 Medical spray Branch fluticasone 20160 Yes Univer s 50 3-09 ity of mcg/actuati 00:00: [place] on nasal 00 Medical spray Branch fluticasone 2016-0 Yes Univer s 50 3-09 ity of mcg/actuati 00:00: [place] on nasal 00 Medical spray Branch fluticasone 20160 Yes Univer s 50 3-09 ity of mcg/actuati 00:00: [place] on nasal 00 Medical spray Branch fluticasone 20160 Yes Univer s 50 3-09 ity of mcg/actuati 00:00: [place] on nasal 00 Medical spray Branch fluticasone 20160 Yes Univer s 50 3-09 ity of mcg/actuati 00:00: [place] on nasal 00 Medical spray Branch fluticasone 20160 Yes Univer s 50 3-09 ity of mcg/actuati 00:00: [place] on nasal 00 Medical spray Branch fluticasone 20160 Yes Univer s 50 3-09 ity of mcg/actuati 00:00: [place] on nasal 00 Medical spray Branch fluticasone 20160 Yes Univer s 50 3-09 ity of mcg/actuati 00:00: [place] on nasal 00 Medical spray Branch fluticasone 20160 Yes Univer s 50 3-09 ity of mcg/actuati 00:00: [place] on nasal 00 Medical spray Branch fluticasone 20160 Yes Univer s 50 3-09 ity of mcg/actuati 00:00: [place] on nasal 00 Medical spray Branch fluticasone 20160 Yes Univer s 50 3-09 ity of mcg/actuati 00:00: [place] on nasal 00 Medical spray Branch fluticasone 20160 Yes Univer s 50 3-09 ity of mcg/actuati 00:00: [place] on nasal 00 Medical spray Branch fluticasone 0 Yes Univer s 50 3-09 ity of mcg/actuati 00:00: [place] on nasal 00 Medical spray Branch fluticasone 0 Yes Univer s 50 3-09 ity of mcg/actuati 00:00: [place] on nasal 00 Medical spray Branch fluticasone 0 Yes Univer s 50 3-09 ity of mcg/actuati 00:00: [place] on nasal 00 Medical spray Branch Vital Signs Vital Name Observation Time Observation Value Comments Source Systolic blood 2022-12-11 13:21:00 134 mm[Hg] Univer sity [facility] pressure Medical Branch Diastolic blood 2022-12-11 13:21:00 74 [facility]Hg[facility] Medical Branch Heart rate 2022-12-11 13:21:00 72 /min [facility] Body height 2022-12-11 13:21:00 172.7 cm [facility] Body weight 2022-12-11 13:21:00 109.498 kg [facility] BMI 2022-12-11 13:21:00 36.70 kg/m2 [facility] Oxygen saturation 2022-12-11 13:21:00 99 /min [facility] in Arterial blood Medical Br anch by Pulse oximetry Systolic blood 2022-11-20 13:37:00 148 mm[Hg] [facility]ity [facility] [place] pressure Medical Branch Diastolic blood 2022-11-20 13:37:00 77 mm[Hg] Unive rsity of [place] pressure Medical Branch Heart rate 2022-11-20 13:21:00 66 /min [facility] [place] [facility] Body height 2022-11-20 13:21:00 172.7 cm [facility] [place] [facility] Body weight 2022-11-20 13:21:00 113.036 kg [facility] [place] [facility] BMI 2022-11-20 13:21:00 37.89 kg/m2 [facility] [place] [facility] Oxygen saturation 2022-11-20 13:21:00 98 /min Uni versity of [place] in Arterial blood Medical Br anch by Pulse oximetry Systolic blood 2022-10-30 13:31:00 160 mm[Hg] Univer sity of [place] pressure Medical Branch Diastolic blood 2022-10-30 13:31:00 91 mm[Hg] Unive rsity of [place] pressure Medical Branch Heart rate 2022-10-30 13:23:00 74 /min [facility] [place] [facility] Body weight 2022-10-30 13:23:00 113.354 kg [facility] [place] [facility] BMI 2022-10-30 13:23:00 38.00 kg/m2 [facility] [place] [facility] Oxygen saturation 2022-10-30 13:23:00 97 /min Uni versity of [place] in Arterial blood Medical Br anch by Pulse oximetry Systolic blood 2022-10-09 15:57:00 146 mm[Hg] Univer sity of [place] pressure Medical Branch Diastolic blood 2022-10-09 15:57:00 80 mm[Hg] Unive rsity of [place] pressure Medical Branch Heart rate 2022-10-09 15:56:00 76 /min [facility] [place] [facility] Body height 2022-10-09 15:56:00 172.7 cm [facility] [place] [facility] Body weight 2022-10-09 15:56:00 113.218 kg [facility] [place] [facility] BMI 2022-10-09 15:56:00 37.95 kg/m2 [facility] [place] [facility] Oxygen saturation 2022-10-09 15:56:00 98 /min Uni versity of [place] in Arterial blood Medical Br anch by Pulse oximetry Systolic blood 2022-09-18 15:03:00 133 mm[Hg] Univer sity of [place] pressure Medical Branch Diastolic blood 2022-09-18 15:03:00 75 mm[Hg] Unive rsity of [place] pressure Medical Branch Heart rate 2022-09-18 15:02:00 80 /min [facility] [place] [facility] Body height 2022-09-18 15:02:00 172.7 cm [facility] [place] [facility] Body weight 2022-09-18 15:02:00 112.946 kg [facility] [place] [facility] BMI 2022-09-18 15:02:00 37.86 kg/m2 [facility] [place] [facility] Oxygen saturation 2022-09-18 15:02:00 98 /min Uni versity of [place] in Arterial blood Medical Br anch by Pulse oximetry Systolic blood 2022-08-28 13:15:00 165 mm[Hg] Univer sity of [place] pressure Medical Branch Diastolic blood 2022-08-28 13:15:00 90 mm[Hg] [facility]ive rsity of [place] pressure Medical Branch Heart rate 2022-08-28 13:14:00 72 /min [facility] [place] [facility] Body weight 2022-08-28 13:14:00 114.76 kg [facility] [place] [facility] BMI 2022-08-28 13:14:00 38.47 kg/m2 [facility] [place] [facility] Oxygen saturation 2022-08-28 13:14:00 97 /min Uni versity of [place] in Arterial blood Medical Br anch by Pulse oximetry Systolic blood 2022-08-07 12:25:00 146 mm[Hg] Univer sity of [place] pressure Medical Branch Diastolic blood 2022-08-07 12:25:00 83 mm[Hg] [facility]ive rsity of [place] pressure Medical Branch Heart rate 2022-08-07 12:24:00 76 /min [facility] [place] [facility] Body weight 2022-08-07 12:24:00 113.399 kg [facility] [place] [facility] BMI 2022-08-07 12:24:00 38.01 kg/m2 [facility] [place] [facility] Systolic blood 2022-07-17 12:24:00 149 mm[facility]Hg] [facility] Diastolic blood 2022-07-17 12:24:00 80 mm[Hg] [facility] pressure [facility] Heart rate 2022-07-17 12:14:00 70 /min [facility] Body height 2022-07-17 12:14:00 172.7 cm [facility] Body weight 2022-07-17 12:14:00 111.313 kg [facility] BMI 2022-07-17 12:14:00 37.31 kg/m2 [facility] Oxygen saturation 2022-07-17 12:14:00 97 /min [facility] in Arterial blood [facility] anch by Pulse oximetry Procedures Procedure Date / Time Performed Performing Clinician [facility] e BASIC METABOLIC PANEL 2022-12-11 14:07:00 Brandon Infante [facility] (NA, K, CL, CO2, Medical Branch GLUCOSE, BUN, CREATININE, CA) CBC WITH DIFF 2022-12-11 14:07:00 Brandon Infante [place] [facility] MR HIP RIGHT WO 2022-11-14 20:42:00 Requisition, Paper [facility] CONTRAST [facility] MR LUMBAR SPINE WO 2022-09-10 13:53:08 Brandon Infante [facility] CONTRAST [facility] CONSENT/REFUSAL FOR 2022-08-28 13:02:58 Doctor Unassigned, No Un [facility] DIAGNOSIS AND Name [facility] Branch TREATMENT Encounters Start End Encounter Admission Attending Care Care Encounter Source Date/Time Date/Time Type Type Clinicians Facility Department ID 2023-02-12 2023-02-12 Outpatient Desi [facility]TE [facility] [id number] Univers 07:30:00 07:30:00 [facility] 2023-01-22 2023-01-22 Outpatient Desi [facility] [id number] Univers 07:30:00 07:30:00 [facility] 2023-01-01 2023-01-01 Outpatient Desi [facility] [id number] Univers 07:45:00 07:45:00 [facility] 2022-12-11 2022-12-11 Service Officer Lab, Ang - Db [facility] [id number] Univers 08:00:00 08:15:00 Visit Brandon Infante [facility] [id number] ity of [place] [id number] Mauricio as BRYAN?BLEA [id number] Md nakia GHOTRA [address] [place] MEDICAL OFFICE BUILDING 2022-12-11 2022-12-11 [facility] [id number] Univers 07:45:00 08:01:00 Visit [facility] [id number] it y of [place] [id number] Mauricio as BRYAN?BLEA [id number] [facility] [address] [facility] 2022-12-11 2022-12-11 Outpatient R ARELIS [facility] [id number] Univers 07:45:00 08:01:00 [facility]ON [facility] 2022-12-11 2022-12-11 Telephone [facility] [id number] Univers 00:00:00 00:00:00 [facility] [id number] it y of [place] [id number] Mauricio as BRYAN?BLEA [id number] [address] [facility] 2022-12-11 2022-12-11 [facility]phone [facility] [id number] Univers 00:00:00 00:00:00 Brandon HEALTH [id number] it y of [place] [id number] Mauricio as BRYAN?BLEA [id number] [facility] [address] MEDICAL [facility]ICE [facility] 2022-12-06 2022-12-06 Refill Arelis [facility] [id number] Univers 00:00:00 00:00:00 Brandon HEALTH [id number] it y of [place] [id number] Mauricio as BRYAN?BLEA [id number] [address] MEDICAL OFFICE BUILDING 2022-12-04 2022-12-04 Refill Doctor [facility] [id number] Univers 00:00:00 00:00:00 Unassigned, HEALTH [id number] ity of [place] [id number] Mauricio as BRYAN?BLEA [id number] [facility] [address] [place] [address] [facility]ICE [facility] 2022-11-20 2022-11-20 Outpatient R ARELIS [facility] [id number] Univers 09:45:00 13:05:24 BRANDON ity of [facility] 2022-11-20 2022-11-20 Office [facility] [id number] Univers 09:45:00 13:05:24 Visit [place] HEALTH 350.1.13.10 it y of [place] 4.2.7.2.686 Mauricio as BRYAN?BLEA [phone] [facility] [address] [facility] 2022-11-16 2022-11-16 Refill Doctor [facility] 1.2.840.114 [id number] Univers 00:00:00 00:00:00 Unassigned, HEALTH 350.1.13.10 ity of [place] 4.2.7.2.686 Mauricio as BRYAN?BLEA [id number] [address] [facility] 2022-11-14 2022-11-14 Outpatient R RADIOLOGY [facility] [id number] Univers 13:38:13 23:59:00 ity of [facility] 2022-11-14 2022-11-14 Hospital Radiology [facility] 1.2.840.114 [id number] Univers 13:30:00 23:59:00 Encounter SPECIALTY 350.1.13.10 ity of [place] [id number] Md nakia BURNS 804 [facility] 2022-11-11 2022-11-11 Refill Doctor [facility] 1.2.840.114 [id number] Univers 00:00:00 00:00:00 Unassigned, HEALTH 350.1.13.10 ity of [place] 4.2.7.2.686 Mauricio as BRYAN?BLEA [id number] Md dical [address] MEDICAL OFFICE BUILDING 2022-10-30 2022-10-30 Outpatient Desi INFANTE [facility] [id number] Univers 07:45:00 08:01:24 BRANDON packer [facility] 2022-10-30 2022-10-30 [facility] 1.2.840.114 [id number] Univers 07:45:00 08:01:24 Visit [place] HEALTH 350.1.13.10 it y of [place] 4.2.7.2.686 Mauricio as BRYAN?BLEA [id number] [address] [facility] 2022-10-28 2022-10-28 Refill Doctor [facility] 1.2.840.114 [id number] Univers 00:00:00 00:00:00 Unassigned, HEALTH 350.1.13.10 ity of [place] 4.2.7.2.686 Mauricio as BRYAN?BLEA [id number] [address] [facility] 2022-10-21 2022-10-21 [facility] [id number] Univers 07:30:00 07:30:00 BRANDON packer [facility] 2022-10-13 2022-10-13 Refill Antonia [facility] 1.2.840.114 [id number] Univers 00:00:00 00:00:00 [facility] 350.1.13.10 it y of [place] 4.2.7.2.686 Mauricio as BRYAN?BLEA [phone] [address] [facility] 2022-10-09 2022-10-09 Outpatient [facility] [id number] Univers 10:00:00 10:30:56 BRANDON packer [facility] 2022-10-09 2022-10-09 [facility] 1.2.840.114 [id number] Univers 10:00:00 10:30:56 Visit [facility] 350.1.13.10 it y of [place] 4.2.7.2.686 Mauricio as BRYAN?BLEA [id number] [address] [facility] 2022-10-02 2022-10-02 Refill Doctor [facility] 1.2.840.114 [id number] Univers 00:00:00 00:00:00 Unassigned, HEALTH 350.1.13.10 ity of [place] 4.2.7.2.686 Mauricio as BRYAN?BLEA [id number] [address] [facility] 2022-10-02 2022-10-02 Refill Doctor [facility] 1.2.840.114 [id number] Univers 00:00:00 00:00:00 Unassigned, HEALTH 350.1.13.10 ity of [place] 4.2.7.2.686 Mauricio as BRYAN?BLEA [id number] [address] [facility] 2022-09-18 2022-09-18 Outpatient [facility] [id number] Univers 10:00:00 10:39:22 BRANDON ittrinity [facility] 2022-09-18 2022-09-18 Office [facility] 1.2.840.114 [id number] Univers 10:00:00 10:39:22 Visit [facility] 350.1.13.10 it y of [place] 4.2.7.2.686 Mauricio as BRYAN?BLEA [id number] [address] [facility] 2022-09-10 2022-09-10 Outpatient [facility] [id number] Univers 07:55:42 23:59:00 BRANDON ity [facility] 2022-09-10 2022-09-10 [facility] 1.2.840.114 [id number] Univers 07:55:42 23:59:00 Encounter Brandon BAKER 350.1.13.10 ity of [place] 4.2.7.2.686 [place] [facility] [id number] [address] 2022-08-31 2022-08-31 [facility] 1.2.840.114 [id number] Univers 00:00:00 00:00:00 Yue HEALTH 350.1.13.10 it y of [place] 4.2.7.2.686 Mauricio as BRYAN?BLEA [phone] [address] [facility] 2022-08-28 2022-08-28 Outpatient R ARELIS [facility] [id number] Univers 08:45:00 08:50:20 BRANDON ittrinity [facility] 2022-08-28 2022-08-28 Office Arelis [facility] 1.2.840.114 [id number] Univers 08:45:00 08:50:20 Visit [facility] 350.1.13.10 it y [facility] 4.2.7.2.686 Mauricio as BRYAN?BLEA [id number] [address] [facility] 2022-08-28 2022-08-28 Orders Doctor ANNE-MARIE 1.2.840.114 [id number] Univers 00:00:00 00:00:00 Only Unassigned, SOILA 350.1.13.10 ity of [place] [facility] 4.2.7.2.686 Mauricio as [id number] [address] 2022-08-21 2022-08-21 Refill Doctor [facility] 1.2.840.114 [id number] Univers 00:00:00 00:00:00 Unassigned, HEALTH 350.1.13.10 ity of [place] [facility] 4.2.7.2.686 Mauricio as BRYAN?BLEA [id number] [address] [facility] 2022-08-09 2022-08-09 Refill Arelis [facility] 1.2.840.114 [id number] Univers 00:00:00 00:00:00 [place] HEALTH 350.1.13.10 it y of [facility] 4.2.7.2.686 Mauricio as BRYAN?BLEA [id number] [address] [facility] 2022-08-07 2022-08-07 Outpatient R ARELIS [facility] [id number] Univers 07:45:00 07:48:02 BRANDON ittrinity [facility] 2022-08-07 2022-08-07 Office Arelis [facility] 1.2.840.114 [id number] Univers 07:45:00 07:48:02 Visit [place] HEALTH 350.1.13.10 it y of [place] 4.2.7.2.686 Mauricio as BRYAN?BLEA [id number] [address] [facility] 2022-08-07 2022-08-07 Outpatient Desi INFANTE [facility] [id number] Univers 07:45:00 07:45:00 BRANDON packer [facility] 2022-07-29 2022-07-29 Refill Doctor [facility] 1.2.840.114 [id number] Univers 00:00:00 00:00:00 Unassigned, HEALTH 350.1.13.10 ity of [place] 4.2.7.2.686 Mauricio as BRYAN?BLEA [id number] [address] [facility] 2022-07-24 2022-07-24 Outpatient Desi INFANTE [facility] [id number] Univers 13:00:00 23:59:00 BRANDON packer [facility] 2022-07-17 2022-07-17 Outpatient Desi INFANTE [facility] [id number] Univers 07:45:00 07:47:17 BRANDON packer [facility] 2022-07-17 2022-07-17 [facility] 1.2.840.114 [id number] Univers 07:45:00 07:47:17 Visit [place] [facility] 350.1.13.10 it y of [place] 4.2.7.2.686 Mauricio as BRYAN?BLEA [id number] [address] [facility] 2022-07-13 2022-07-13 Refill Doctor [facility] 1.2.840.114 [id number] Univers 00:00:00 00:00:00 Unassigned, HEALTH 350.1.13.10 ity of [place] 4.2.7.2.686 Mauricio as BRYAN?BLEA [id number] [address] [facility] 2022-06-26 2022-06-26 Outpatient Desi INFANTE [facility] [id number] Univers 07:30:00 07:47:49 BRANDON packer [facility] 2022-06-26 2022-06-26 Office Arelis [facility] 1.2.840.114 [id number] Univers 07:30:00 07:47:49 Visit [place] HEALTH 350.1.13.10 it y of [place] 4.2.7.2.686 Mauricio as BRYAN?BLEA [id number] [address] [facility] 2022-06-09 2022-06-09 Telephone Team, [facility] ANNE-MARIE 1.2.840.114 [id number] Univers 00:00:00 00:00:00 Health SOILA 350.1.13.10 it y of [facility] 4.2.7.2.686 [place] [id number] [address] 2022-06-09 2022-06-09 Refill Doctor [facility] 1.2.840.114 [id number] Univers 00:00:00 00:00:00 Unassigned, HEALTH 350.1.13.10 ity of [place] 4.2.7.2.686 Mauricio as BRYAN?BLEA [id number] [address] [facility] 2022 2022 Outpatient Desi INFANTE [facility] [id number] Univers 09:30:00 09:30:00 BRANDON packer [facility] 2022 2022 Outpatient Desi INFANTE, [facility] [id number] Univers 09:30:00 09:30:00 BRANDON packer [facility] 2022 2022 Office [facility] 1.2.840.114 [id number] Univers 08:15:00 08:59:17 Visit [place] HEALTH 350.1.13.10 it y of [facility] 4.2.7.2.686 Mauricio as BRYAN?BLEA [id number] [address] [facility] 2022 2022 Outpatient Desi INFANTE [facility] [id number] Univers 08:15:00 08:59:17 BRANDON packer [facility] 2022 2022 Outpatient Desi INFANTE [facility] [id number] Univers 08:15:00 08:59:17 BRANDON packer [facility] 2022 2022 Outpatient R ARELIS [facility] [id number] Univers 08:15:00 08:15:00 BRANDON packer [facility] 2022-05-28 2022-05-28 Telephone Arelis [facility] 1.2.525.469 [id number] Univers 00:00:00 00:00:00 [facility] 350.1.13.10 it y of [place] 4.2.7.2.686 Mauricio as BRYAN?BLEA [id number] [address] [facility] 2022-05-08 2022-05-08 Outpatient R ARELIS [facility] [id number] Univers 09:45:00 10:13:59 BRANDON packer [facility] 2022-05-08 2022-05-08 Office [facility] 1.2.840.114 [id number] Univers 09:45:00 10:13:59 Visit [facility] 350.1.13.10 it y [facility] 4.2.7.2.686 Mauricio as BRYAN?BLEA [id number] [address] [facility] 2022-05-08 2022-05-08 Outpatient R ARELIS [facility] [id number] Univers 09:45:00 10:13:59 BRANDON packer [facility] 2022-05-01 2022-05-01 [facility] 1.2.840.114 [id number] Univers 00:00:00 00:00:00 Secure Msg [facility] 350.1.13.10 ity of [place] 4.2.7.2.686 Mauricio as BRYAN?BLEA [id number] [address] MEDICAL OFFICE BUILDING 2022-04-17 2022-04-17 Office [facility] 1.2.840.114 [id number] Univers 10:00:00 10:00:00 Visit [facility] 350.1.13.10 it y of [place] 4.2.7.2.686 Mauricio as BRYAN?BLEA [id number] [address] MEDICAL OFFICE BUILDING 2022-04-17 2022-04-17 Outpatient Desi INFANTE [facility] [id number] Univers 10:00:00 [facility]:48:24 [facility] 2022-04-17 2022-04-17 Outpatient Desi INFANTE [facility] [id number] Univers 07:30:00 07:30:00 [facility] 2022-04-17 2022-04-17 Outpatient Desi INFANTE [facility] [id number] Univers 07:30:00 07:30:00 [facility] 2022-04-14 2022-04-14 Patient Kimber Dos Santos [facility] 1.2.840.114 [id number] Univers 00:00:00 00:00:00 Secure [facility]ALTH 350.1.13.10 ity of [place] 4.2.7.2.686 Mauricio as BRYAN?BLEA [id number] [address] [facility] 2022-03-27 2022-03-27 Outpatient Desi INFANTE [facility] [id number] Univers 09:45:00 09:45:00 [facility] 2022-03-24 2022-03-24 [facility] 1.2.840.114 [id number] Univers 14:30:00 15:41:48 Visit [facility] 350.1.13.10 it y of [place] 4.2.7.2.686 Mauricio as BRYAN?BLEA [id number] [address] [facility] 2022-03-24 2022-03-24 Outpatient Desi INFANTE [facility] [id number] Univers 14:30:00 15:41:48 [facility] 2022-03-24 2022-03-24 Outpatient Desi INFANTE [facility] [id number] Univers 14:30:00 14:30:00 [facility] 2022-03-22 2022-03-22 Refill Arelis [facility] 1.2.840.114 [id number] Univers 00:00:00 00:00:00 [facility] 350.1.13.10 it y of [place] 4.2.7.2.686 Mauricio as BRYAN?BLEA [id number] Md nakia [address] [facility] 2022-03-06 2022-03-06 Outpatient Desi ARELIS [facility] [id number] Univers 09:45:00 10:22:12 BRANDON packer [facility] 2022-03-06 2022-03-06 Office [facility] 1.2.840.114 [id number] Univers 09:45:00 10:22:12 Visit [facility] 350.1.13.10 it y of [place] 4.2.7.2.686 Mauricio as BRYAN?BLEA [id number] [address] [facility] 2022-02-20 2022-02-20 Refill Doctor [facility] 1.2.840.114 [id number] Univers 00:00:00 00:00:00 Unassigned, HEALTH 350.1.13.10 ity of [place] 4.2.7.2.686 Mauricio as BRYAN?BLEA [phone] [facility] [address] [facility] 2022-02-06 2022-02-06 Outpatient Desi INFANTE [facility] [id number] Univers 09:30:00 10:03:56 BRANDON packer [facility] 2022-02-06 2022-02-06 [facility] 1.2.840.114 [id number] Univers 09:30:00 10:03:56 Visit [facility] 350.1.13.10 it y of [place] 4.2.7.2.686 Mauricio as BRYAN?BLEA [id number] [address] [facility] 2022-02-06 2022-02-06 Outpatient eDsi INFANTE [facility] [id number] Univers 09:30:00 09:30:00 BRANDON packer [facility] 2022-01-16 2022-01-16 Outpatient Desi INFANTE [facility] [id number] Univers 12:00:00 08:22:41 BRANDON packer [facility] 2022-01-09 2022-01-09 Outpatient Desi INFANTE [facility] [id number] Univers 07:30:00 07:30:00 BRANDON packer [facility] 2022-01-06 2022-01-06 Patient Arelis [facility] 1.2.840.114 [id number] Univers 00:00:00 00:00:00 Secure Msg [facility] 350.1.13.10 ity of [place] 4.2.7.2.686 Mauricio as BRYAN?BLEA [id number] [address] [facility] 2021-12-16 2021-12-16 [facility] [id number] Univers 07:45:00 08:16:30 BRANDON packer [facility] 2021-12-16 2021-12-16 [facility] 1.2.840.114 [id number] Univers 07:45:00 08:16:30 Visit [facility] 350.1.13.10 it y [facility] 4.2.7.2.686 Mauricio as BRYAN?BLEA [id number] [address] [facility] 2021-11-21 2021-11-21 Outpatient R ARELIS [facility] [id number] Univers 12:00:00 12:25:16 BRANDON packer [facility] 2021-11-21 2021-11-21 [facility] 1.2.840.114 [id number] Univers 12:00:00 12:25:16 Visit [facility] 350.1.13.10 it y of [place] 4.2.7.2.686 Mauricio as BRYAN?BLEA [id number] [address] [facility] 2021-10-30 2021-10-30 [facility] [id number] Univers 10:00:00 10:14:54 BRANDON packer [facility] 2021-10-30 2021-10-30 [facility] 1.2.840.114 [id number] Univers 09:43:03 10:14:54 Visit [facility] 350.1.13.10 it y of [place] 4.2.7.2.686 Mauricio as BRYAN?BLEA [id number] [address] [facility] 2021-10-25 2021-10-25 Outpatient R LAURA, [facility] [id number] Univers 13:00:00 13:00:00 SENDMODESTA packer [facility] 2021-10-10 2021-10-10 [facility] 1.2.840.114 [id number] Univers 12:30:25 13:09:50 Visit [facility] 350.1.13.10 it y of [place] 4.2.7.2.686 Mauricio as BRYAN?BLEA [id number] [address] [facility] 2021-10-10 2021-10-10 Outpatient R ARELIS [facility] [id number] Univers 12:30:00 13:09:50 BRANDON packer [facility] 2021-10-10 2021-10-10 Outpatient R ARELIS [facility] [id number] Univers 12:30:00 13:09:50 BRANDON packer [facility] 2021-09-19 2021-09-19 [facility] 1.2.840.114 [id number] Univers 09:32:18 10:12:01 Visit [facility] 350.1.13.10 it y of [place] 4.2.7.2.686 Mauricio as BRYAN?BLEA [id number] [address] [facility] 2021-09-19 2021-09-19 Outpatient R ARELIS [facility] [id number] Univers 09:30:00 10:12:01 BRANDON packer [facility] 2021-09-19 2021-09-19 Outpatient R ARELIS, [facility] [id number] Univers 09:30:00 09:30:00 BRANDON trinity [facility] 2021-08-29 2021-08-29 [facility] 1.2.840.114 [id number] Univers 09:27:40 09:58:38 Visit [facility] 350.1.13.10 it y of [place] 4.2.7.2.686 Mauricio as Bryan?Blea [id number] [address] Medical Office [facility] 2021-08-29 2021-08-29 Outpatient R ARELIS [facility] [id number] Univers 09:45:00 09:45:00 BRANDON allentrinity [facility] 2021-08-09 2021-08-09 [facility] 1.2.840.114 [id number] Univers 10:09:28 23:59:00 Encounter [place] 350.1.13.10 ity of [place] 4.2.7.2.686 [facility] [id number] [facility] [address] [place] [address] 2021-08-09 2021-08-09 [facility] 1.2.840.114 [id number] Univers 10:: 23:59:00 Encounter [place] 350.1.13.10 ity of [place] 4.2.7.2.686 [facility] [id number] [address] 2021-08-09 2021-08-09 Outpatient R [facility] [id number] Univers 00:00:00 00:00:00 ity of [facility] 2021-08-08 2021-08-08 Office [facility] 1.2.840.114 [id number] Univers 09:10:30 09:49:33 Visit [facility] 350.1.13.10 it y of [place] 4.2.7.2.686 Mauricio as Bryan?Blea [phone] [address] Medical Office Building 2021-08-08 2021-08-08 Outpatient Desi INFANTE [facility] [id number] Univers 09:30:00 09:30:00 BRANDON birdie [facility] 2021-08-08 2021-08-08 Orders Doctor XIE 1.2.840.114 [id number] Univers 00:00:00 00:00:00 Only UnassignedSOILA 350.1.13.10 ity of [place] [facility] 4.2.7.2.686 Mauricio as [id number] [facility] [address] [place] 2021-08-08 2021-08-08 Orders Doctor XIE 1.2.840.114 [id number] Univers 00:00:00 00:00:00 Only Unassigned, SOILA 350.1.13.10 ity of [place] [facility] 4.2.7.2.686 Mauricio as [id number] [address] 2021-07-22 2021-07-22 Telephone FanRich asher [facility] 1.2.840.11 [id number] Univers 00:00:00 00:00:00 Y HEALTH 350.1.13.10 i ty [place] [id number] [address] 2021-07-22 2021-07-22 [facility] 1.2.840.114 [id number] Univers 00:00:00 00:00:00 Health 350.1.13.10 it y of [place].2.[place] Eduardo [id number] [address] Office Building 2021-07-22 2021-07-22 Telephone [facility] 1.2.840.11 [id number] Univers 00:00:00 00:00:00 Y HEALTH 350.1.13.10 i ty of [place] [id number] [address] 2021-07-22 2021-07-22 Telephone [facility] 1.2.840.114 [id number] Univers 00:00:00 00:00:00 Health 350.1.13.10 it y of [place]2.[place] Eduardo [id number] [address] Office Building 2021-07-18 2021-07-18 Office Arelis [facility] 1.2.840.114 [id number] Univers 09:12:17 09:58:35 Visit [facility] 350.1.13.10 it y of [place] 4.2.7.2.686 Mauricio as Bryan?Blea [phone] Md nakia ghotra [address] [place] [address] Office Building 2021-07-18 2021-07-18 Outpatient R ARELIS [facility] [id number] Univers 09:45:00 09:45:00 BRANDON packer of [facility] 2021-07-17 2021-07-17 [facility], [facility] 1.2.840.114 [id number] Univers 12:07:43 23:59:00 Encounter Hamida HernandesMell Y HEALTH 350.1.13.10 ity of [place] 4[place]2.7.2.[place] [id number] [facility] [address] 2021-07-17 2021-07-17 Service Officer [facility]ERS[facility] 1.2.840.114 [id number] Univers 15:43:05 15:58:05 Visit Rich Vera HEALTH 350.1.13.10 ity of [place] 4[place]2.[place].2.[place] [id number] [facility] [address] 2021-07-17 2021-07-17 Service Officer [facility] 1.2.840.114 [id number] Univers 15:43:05 15:58:05 Visit Rich Vera HEALTH 350.1.13.10 ity of [place] 4[place].2.[place] [id number] [facility] [address] [place] 2021-07-17 2021-07-17 Outpatient R RICH VERA [facility] [id number] Univers 14:00:00 14:00:00 ity of [facility] 2021-07-17 2021-07-17 Office Rich Vera [facility] 1.2.840.114 [id number] Univers 12:30:26 13:30:26 Visit HEALTH 350.1.13.10 i ty of [place] 4[place] [id number] [facility] [address] 2021-07-17 2021-07-17 Office Rich Vera [facility] 1.2.840.114 [id number] Univers 12:30:26 13:30:26 Visit HEALTH 350.1.13.10 i ty of [place] 4[place]2.[place] [phone] [id number] [place] 2021-07-17 2021-07-17 Office Rich Vera [facility] 1.2.840.114 [id number] Univers 12:30:26 13:30:26 Visit Y HEALTH 350.1.13.10 i ty [phone] [place] [id number] [place] 2021-06-27 2021-06-27 [facility] 1.2.840.114 [id number] Univers 10:03:08 10:37:43 Visit [facility] 350.1.13.10 it y of [place] 4.2.7.2.686 Mauricio as Professio [phone] [address] [facility] 2021-06-27 2021-06-27 Outpatient Desi [facility] [id number] Univers 10:15:00 10:15:00 [facility] 2021-06-26 2021-06-26 Outpatient Desi [facility] [id number] Univers 07:15:00 07:15:00 [facility] 2021-06-05 2021-06-05 Outpatient Desi [facility] [id number] Univers 13:30:00 13:30:00 [facility] 2021-06-05 2021-06-05 Outpatient Desi [facility] [id number] Univers 13:30:00 13:30:00 [facility] 2021-06-05 2021-06-05 [facility] 1.2.840.114 [id number] Univers 13:12:24 13:27:24 [facility].1.13.10 [facility] y [place] [id number] Mauricio as Professio [phone] [address] One 2021-05-16 2021-05-16 [facility] 1.2.840.114 [id number] Univers 08:54:57 09:38:45 Visit [facility] 350.1.13.10 it y of [place] [id number] Mauricio as Professio [phone] [address] One 2021-05-16 2021-05-16 [facility] [id number] Univers 09:15:00 09:15:00 [place] packer [facility] 2021-05-07 2021-05-07 Telephone [facility] [id number] Univers 00:00:00 00:00:00 Brandon Arizmendi 350.1.13.10 it y of [place] 4.2.7.2.686 Mauricio as Professio [phone] Md dical nal [address] [place] [address] [facility] One 2021-05-02 2021-05-02 [facility] 1.2.840.114 [id number] Univers 17:00:00 23:59:00 Encounter Brandon Baker 350.1.13.10 ity of [place] 4.2.7.2.686 [place] [phone] [facility] 807 [place] 2021-05-02 2021-05-02 Office [facility] 1.2.840.114 [id number] Univers 13:57:08 14:49:50 Visit Brandon Arizmendi 350.1.13.10 it y of [place] 4.2.7.2.686 Mauricio as Professio [phone] [facility] nal [address] One 2021-05-02 2021-05-02 [facility] [id number] Univers 14:15:00 14:15:00 BRANDON packer [facility] 2021-05-02 2021-05-02 [facility]phone [facility] [id number] Univers 00:00:00 00:00:00 Brandon Arizmendi 350.1.13.10 it y of [place] 4.2.7.2.686 Mauricio as Professio [phone] Md dicvt nal [address] [place] [address] [facility] 2021-05-02 2021-05-02 Orders Doctor ANNE-MARIE 1.2.840.114 [id number] Univers 00:00:00 00:00:00 Only Unassigned, SOILA 350.1.13.10 ity of [place] [facility] 4.2.7.2.686 Mauricio as [phone] [facility] 009 [place] 2021-04-25 2021-04-25 Office [facility] 1.2.840.114 [id number] Univers 08:55:46 09:45:36 Visit [facility] 350.1.13.10 it y of [place] 4.2.7.2.686 Mauricio as Professio [phone] [facility] [address] [facility] 2021-04-25 2021-04-25 Outpatient R ARELIS [facility] [id number] Univers 09:15:00 09:15:00 BRANDON ittrinity [facility] 2021-04-04 2021-04-04 Office [facility] 1.2.840.114 [id number] Univers 13:24:06 14:06:26 Visit Sendmodesta NicoleMarie [place] 350.1.13.10 ity of [place].2.7.2.[place] Profess[place] [phone] [facility] 059 [facility] 2021-04-04 2021-04-04 [facility]patient [facility] [id number] Univers 13:30:00 13:30:00 [facility] 2021-04-04 2021-04-04 Office [facility] 1.2.840.114 [id number] Univers 08:59:00 09:33:53 Visit [facility] 350.1.13.10 it y of [place] 4.2.7.2.686 Mauricio as Professio [phone] [address] One 2021-04-01 2021-04-01 Outpatient R LAURA [facility] [id number] Univers 14:00:00 14:00:00 SENDIL ity [facility] 2021-03-14 2021-03-14 Office [facility] 1.2.840.114 [id number] Univers 09:47:02 10:39:39 Visit [facility] 350.1.13.10 it y of [place] 4.2.7.2.686 Mauricio as Professio [phone] [address] One 2021-03-14 2021-03-14 [facility] [id number] Univers 09:45:00 09:45:00 BRANDON ity [facility] 2021-02-26 2021-02-26 Office [facility] 1.2.840.114 [id number] Univers 08:52:02 10:03:58 Visit Hamiad Baker 350.1.13.10 ity of [place] 4.2.7.2.[place] Profess[place] [phone] Md dicvt nal 059 [facility] 2021-02-26 2021-02-26 Outpatient R LAURA [facility] [id number] Univers 09:00:00 09:00:00 SENDIL ity [facility] 2021-02-26 2021-02-26 Office [facility] 1.2.840.114 [id number] Univers 07:02:14 08:17:38 Visit [facility] 350.1.13.10 it y of [place] 4.2.7.2.686 Mauricio as Professio [phone] [facility] 044 [facility] 2021-02-26 2021-02-26 Orders Doctor ANNE-MARIE 1.2.840.114 [id number] Univers 00:00:00 00:00:00 Only Unassigned, SOILA 350.1.13.10 [facility] 4.2.7.2.686 Mauricio as [phone] [address] 2021-02-21 2021-02-21 [facility] [id number] Univers 09:45:00 09:45:00 [facility] 2021-02-21 2021-02-21 Refill [facility] 1.2.840.114 [id number] Univers 00:00:00 00:00:00 [facility] 350.1.13.10 it y of [place] 4.2.7.2.686 Mauricio as Professio [phone] Md dicvt nal [address] 2021-02-09 2021-02-09 Letter [facility] 1.2.840.114 [id number] Univers 00:00:00 00:00:00 (Out) [facility] 350.1.13.10 it y of [place] 4.2.7.2.686 Mauricio as Professio [phone] [address] Office Building One 2021-02-04 2021-02-04 Outpatient Desi COURTNEY [facility] [id number] Univers 09:20:00 09:20:00 GIOVANY ittrinity o f [facility] 2021-01-31 2021-01-31 Outpatient Desi INFANTE [facility] [id number] Univers 10:00:00 10:00:00 BRANDON birdie [facility] 2021-01-28 2021-01-28 Office [facility] 1.2.840.114 [id number] Univers 12:25:07 12:40:07 Visit [facility] 350.1.13.10 it y of [place] 4.2.7.2.686 Mauricio as Professio [phone] [address] Office Building One 2021-01-28 2021-01-28 Outpatient Desi INF[facility]TE [facility] [id number] Univers 12:30:00 12:30:00 BRANDON packer [facility] 2021-01-22 2021-01-22 Letter Clinic, [facility] 1.2.840.114 [id number] Univers 00:00:00 00:00:00 (Out) Neurology Y HE[facility] 350.1.13.10 ity of [facility] 4.2.7.2.686 [place] [phone] [address] 2021-01-15 2021-01-15 Outpatient Desi [facility] [id number] Univers 07:15:00 07:15:00 BRANDON packer [facility] 2021-01-11 2021-01-11 Office [facility] 1.2.840.114 [id number] Univers 09:01:29 09:45:22 Visit [facility] 350.1.13.10 it y of [place] 4.2.7.2.686 Mauricio as Professio [phone] [address] Office Building One 2021-01-11 2021-01-11 Outpatient [facility] [id number] Univers 09:15:00 09:15:00 BRANDON packer [facility] 2021-01-10 2021-01-10 Outpatient R ARELIS [facility] [id number] Univers 10:00:00 10:00:00 BRANDON packer [facility] 2020-12-20 2020-12-20 Office Arelis [facility] 1.2.840.114 [id number] Univers 10:08:54 10:43:52 [place] [id number] it y of [place] 4.2.7.2.686 Mauricio as Professio [phone] [address] [facility] 2020-12-20 2020-12-20 Outpatient R ARELIS [facility] [id number] Univers 10:15:00 10:15:00 BRANDON packer [facility] 2020-11-29 2020-11-29 Office [facility] 1.2.840.114 [id number] Univers 10:00:40 10:15:40 Visit [place] [id number] it y of [place] 4.2.7.2.686 Mauricio as Professio [phone] [address] One 2020-11-29 2020-11-29 Outpatient R ARELIS [facility] [id number] Univers 10:00:00 10:00:00 BRANDON packer [facility] 2020-11-07 2020-11-07 Office [facility] 1.2.840.114 [id number] Univers 09:54:44 10:30:22 Visit [place] [id number] it y of [place] 4.2.7.2.686 Mauricio as Professio [phone] [address] [facility] 2020-11-07 2020-11-07 Outpatient R ARELIS [facility] [id number] Univers 10:00:00 10:00:00 BRANDON packer [facility] 2020-10-17 2020-10-17 Office [facility] 1.2.840.114 [id number] Univers 08:57:12 09:29:58 Visit [facility] 350.1.13.10 it y of [place] 4.2.7.2.686 Mauricio as Professio [phone] Md dical nal [address] [facility] 2020-10-17 2020-10-17 Outpatient R ARELIS [facility] [id number] Univers 09:00:00 09:00:00 BRANDON packer [facility] 2020-09-26 2020-09-26 Office [facility] 1.2.840.114 [id number] Univers 09:59:38 10:40:55 [facility] 350.1.13.10 it y of [place] 4.2.7.2.686 Mauricio as Professio [phone] Md dical nal [address] [facility] 2020-09-26 2020-09-26 [facility] [id number] Univers 10:00:00 10:00:00 BRANDON packer [facility] 2020-09-06 2020-09-06 Office [facility] 1.2.840.114 [id number] Univers 09:03:45 09:56:37 Visit [facility] 350.1.13.10 it y of [place] 4.2.7.2.686 Mauricio as Professio [phone] Md dical nal [address] 2020-09-06 2020-09-06 Outpatient R ARELIS [facility] [id number] Univers 09:15:00 09:15:00 BRANDON packer [facility] 2020-08-31 2020-08-31 Outpatient R ARELIS [facility] [id number] Univers 09:35:00 09:35:00 BRANDON packer [facility] 2020-08-31 2020-08-31 ANNE-MARIE Thorne 1.2.840.114 [id number] Univers 00:00:00 00:00:00 Only Brandon CM 350.1.13.10 it y of [facility] 4.2.7.2.686 Mauricio as [phone] [address] 2020-08-16 2020-08-16 Office [facility] 1.2.840.114 [id number] Univers 09:17:39 10:30:57 Visit [facility] 350.1.13.10 it y of [place] 4.2.7.2.686 Mauricio as Professio [phone] [address] 2020-08-16 2020-08-16 Outpatient R ARELIS [facility] [id number] Univers 09:30:00 09:30:00 BRANDON packer [facility] 2020-07-26 2020-07-26 Office Arelis [facility] 1.2.840.114 [id number] Univers 10:03:05 10:44:37 Visit Brandon Baker 350.1.13.10 i ty of [place] 4[place]2.[place].2.[place] [phone] [address] 2020-07-26 2020-07-26 Outpatient Desi [facility]TE [facility] [id number] Univers 10:00:00 10:00:00 BRANDON packer [facility] 2020-07-23 2020-07-23 Refralph [facility] 1.2.840.114 [id number] Univers 00:00:00 00:00:00 Brandon [facility] 350.1.13.10 it y of [place] 4.2.7.2.686 Mauricio as Professio [phone] [address] 2020-07-20 2020-07-20 Refralph [facility] 1.2.840.114 [id number] Univers 00:00:00 00:00:00 Brandon Arizmendi 350.1.13.10 it y of [place] 4.2.7.2.686 Mauricio as Professio [phone] [address] 2020-07-19 2020-07-19 Outpatient Desi [facility] [id number] Univers 09:15:00 09:15:00 BRANDON packer [facility] 2020-06-28 2020-06-28 Office [facility] 1.2.840.114 [id number] Univers 10:21:59 11:04:30 Visit Brandon Baker 350.1.13.10 i ty of [place] 4[place]2.7.2.[place] [phone] [address] 2020-06-28 2020-06-28 Outpatient Desi [facility] [id number] Univers 10:15:00 10:15:00 BRANDON packer [facility] 2020-06-04 2020-06-04 Service Officer 2, Adc Lab [facility] 1.2.840.114 [id number] Univers 15:43:20 15:58:20 Visit Brandon Infante 350.1.13.10 ity of [place] 4.2.7.2.686 [place] Profess[place] [phone] [facility] 353 [facility] 2020-06-04 2020-06-04 Office [facility] 1.2.840.114 [id number] Univers 14:47:48 15:35:06 Visit Brandon Baker 350.1.13.10 i ty of [place] 4.2.7.2.686 [place] [phone] [facility] 044 [facility] 2020-06-04 2020-06-04 Outpatient [facility] [id number] Univers 14:45:00 14:45:00 BRANDON packer [facility] 2020-04-26 2020-05-25 Office [facility] 1.2.840.114 [id number] Univers 09:35:31 14:22:27 Visit Brandon Baker 350.1.13.10 i ty of [place] 4.2.7.2.686 [place] Profess[place] [phone] [address] 2020-05-17 2020-05-17 Office [facility] 1.2.840.114 [id number] Univers 08:47:31 09:27:32 Visit Brandon Baker 350.1.13.10 i ty of [place] 4.2.7.2.686 [place] Profess[place] [phone] [address] 2020-05-17 2020-05-17 Outpatient Desi [facility] [id number] Univers 08:00:00 08:00:00 BRANDON ittrinity [facility] 2020-04-26 2020-04-26 Outpatient Desi [facility] [id number] Univers 09:30:00 09:30:00 BRANDON packer [facility] 2020-04-17 2020-04-17 Out[facility] [id number] Univers 09:00:00 09:00:00 BRANDON packer [facility] 2020-04-05 2020-04-05 Office [facility] 1.2.840.114 [id number] Univers 09:50:59 10:14:11 Visit Brandon Baker 350.1.13.10 i ty of [place] 4[place]2.7.2.[place] [phone] [address] 2020-04-05 2020-04-05 Outpatient [facility] [id number] Univers 09:45:00 09:45:00 BRANDON packer [facility] 2020-04-05 2020-04-05 Telephone [facility] [id number] Univers 00:00:00 00:00:00 Brandon [facility] 350.1.13.10 it y of [place] 4.2.7.2.686 Mauricio as Professio [phone] [address] 2020-03-15 2020-03-15 Outpatient [facility] [id number] Univers 09:45:00 09:45:00 BRANDON packer [facility] 2020-02-23 2020-02-23 Office [facility] 1.2.840.114 [id number] Univers 08:32:51 09:20:14 Visit Brandon Baker 350.1.13.10 i ty of [place] 4.2.7.2.[place] Profess[place] [phone] [address] 2020-02-23 2020-02-23 Outpatient [facility] [id number] Univers 08:45:00 08:45:00 BRANDON packer [facility] 2020-02-02 2020-02-02 Office [facility] 1.2.840.114 [id number] Univers 13:47:11 14:35:06 Visit Brandon Arizmendi 350.1.13.10 it y of [place] 4.2.7.2.686 Mauricio as Professio [phone] [address] 2020-02-02 2020-02-02 Outpatient R ARELIS [facility] [id number] Univers 13:30:00 13:30:00 BRANDON ity of [facility] 2020-01-05 2020-01-05 Office Arelis [facility] 1.2.840.114 [id number] Univers 13:10:48 13:48:07 Visit [facility] 350.1.13.10 it y of [place] 4.2.7.2.686 Mauricio as Professio [phone] [address] [facility] 2019-12-14 2019-12-14 Office [facility] 1.2.840.114 [id number] Univers 07:29:51 08:05:51 Visit [facility] 350.1.13.10 it y of [place] 4.2.7.2.686 Mauricio as Professio [phone] [address] Office [facility] 2019-12-14 2019-12-14 Orders Doctor ANNE-MARIE 1.2.840.114 [id number] Univers 00:00:00 00:00:00 Only Unassigned, SOILA 350.1.13.10 ity of [place] [facility] 4.2.7.2.686 Mauricio as [phone] [address] 2019-11-24 2019-11-24 Orders Doctor ANNE-MARIE 1.2.840.114 [id number] Univers 00:00:00 00:00:00 Only Unassigned, SOILA 350.1.13.10 ity of [place] [facility] 4.2.7.2.686 Mauricio as [phone] [address] 2019-07-21 2019-07-28 Office [facility] 1.2.840.114 [id number] Univers 09:23:05 06:37:08 Visit [facility] 350.1.13.10 it y of [place] 4.2.7.2.686 Mauricio as Professio [phone] [address] [facility] 2019-07-21 2019-07-21 Orders Doctor ANNE-MARIE 1.2.840.114 [id number] Univers 00:00:00 00:00:00 Only Unassigned, SOILA 350.1.13.10 ity of [place] [facility] 4.2.7.2.686 Mauricio as [phone] [facility] [address] [place] 2019-06-23 2019-06-23 Office Arelis [facility] 1.2.840.114 [id number] Univers 07:27:42 08:51:02 Visit [facility] 350.1.13.10 it y of [place] 4.2.7.2.686 Mauricio as [place] [phone] Md dical nal 044 [place] Office Building One Results Test Description Test Time Test Comments Results Result Comments Source BASIC METABOLIC PANEL (NA, K, CL, CO2, GLUCOSE, BUN, 2022-11 20:35:57 CREATININE, [place]) Test Item Value Reference Range Interpretation Comme nts NA (test code = 3803213863) 137 mmol/L 135-145 K (test code = 0284367973) 5.1 mmol/L 3.5-5.0 H CL (test code = 0271405344) 100 mmol/L 98-108 CO2 TOTAL (test code = 9744136727) 30 mmol/L 23-31 AGAP (test code = 2821335271) 2-16 BUN (test code = 0019701535) 20 mg/dL 7-23 GLUCOSE (test code = 7953580061) 106 mg/dL 70-110 CREATININE (test code = 1.24 mg/dL 0.60-1.25 4209346115) CALCIUM (test code = 3742248919) 9.1 mg/dL 8.6-10.6 eGFR (test code = 3139956211) mL/min/1.73m2 PAOLO (test code = PAOLO) Association of Glomerular Filtration Rate (GFR) and Staging of Kidney Disease* + +-------- + ------+| GFR (mL/min/1.73 m2) ?| With Kidney Damage ?| ?Without Kidney Damage+ +-- + +| ?>90 ?| ?Stage one ?| ? Normal ?+ +------- + -------+| ?60-89 ?| ?Stage two ?| ? Decreased GFR ? + +-------- + ------+| ?30-59 ?| ?Stage three ?| ? Stage three ? + +-------- + ------+| ?15-29 ?| ?Stage four ? | ? Stage four ?+ +------- + -------+| ?<15 (or dialysis) ? ?| ?Stage five ? | ? Stage five ?+ +------- + -------+ *Each stage assumes the associated GFR level has been in effect for at least three months. ?Stages 1 to 5, with or without kidney disease, indicate chronic kidney disease. Notes: Determination of stages one and two (with eGFR >59mL/min/1.73 m2) requires estimation of kidney damage for at least three months as defined by structural or functional abnormalities of the kidney, manifested by either:Pathological abnormalities or Markers of kidney damage (including abnormalities in the composition of the blood or urine or abnormalities in imaging tests). Lab Interpretation (test code = Abnormal 43405-4) [facility] METABOLIC PANEL (NA, K, CL, CO2, GLUCOSE, BUN, CREATININE, [place])2022-12-11 20:35:57 Test Item Value Reference Range Interpretation Comments NA (test code = 137 mmol/L 135-145 8760482072) K (test code = 5.1 mmol/L 3.5-5.0 H 4630057528) CL (test code = 100 mmol/L 98-108 4819918726) CO2 TOTAL (test code = 30 mmol/L 23-31 1232417809) AGAP (test code = 2-16 7783595365) BUN (test code = 20 mg/dL 7-23 1835803075) GLUCOSE (test code = 106 mg/dL 70-110 4802704606) CREATININE (test code = 1.24 mg/dL 0.60-1.25 7279203831) CALCIUM (test code = 9.1 mg/dL 8.6-10.6 9536096318) eGFR (test code = mL/min/1.73m2 4591836003) PAOLO (test code = PAOLO) Association of Glomerular Filtration Rate (GFR) and Staging of Kidney Disease* + --+ --+ ------+| GFR (mL/min/1.73 m2) ?| With Kidney Damage ?| ?Without Kidney Damage+ --------+ --------+ +| ?>90 ?| ?Stage one ?| ? Normal ?+ ---+ ---+ -------+| ?60-89 ?| ?Stage two ?| ? Decreased GFR ? + --+ --+ ------+| ?30-59 ?| ?Stage three ?| ? Stage three ? + --+ --+ ------+| ?15-29 ?| ?Stage four ? | ? Stage four ?+ ---+ ---+ -------+| ?<15 (or dialysis) ? ?| ?Stage five ? | ? Stage five ?+ ---+ ---+ -------+ *Each stage assumes the associated GFR level has been in effect for at least three months. ?Stages 1 to 5, with or without kidney disease, indicate chronic kidney disease. Notes: Determination of stages one and two (with eGFR >59mL/min/1.73 m2) requires estimation of kidney damage for at least three months as defined by structural or functional abnormalities of the kidney, manifested by either:Pathological abnormalities or Markers of kidney damage (including abnormalities in the composition of the blood or urine or abnormalities in imaging tests). Lab Interpretation Abnormal (test code = 73641-5) [facility] WITH [id number] 19:37:26 Test Item Value Reference Range Interpretation Comments WBC (test code = See_Comment [Automated 4890-2) message] The sy stem which generated this result transmitted reference range : 4.20 - 10.70 10*3/?L. The reference range was not used to interpret this result as normal/abnormal . RBC (test code = See_Comment [Automated 176-8) message] The sy stem which generated this result transmitted reference range : 4.26 - 5.52 10*6/?L. The reference range was not used to interpret this result as normal/abnormal . HGB (test code = 17.2 g/dL 12.2-16.4 H 718-7) HCT (test code = 50.0 % 38.4-49.3 H 4544-3) MCV (test code = 92.4 fL 81.7-95.6 787-2) MCH (test code = 31.8 pg 26.1-32.7 785-6) MCHC (test code = 34.4 g/dL 31.2-35.0 786-4) RDW-SD (test code = 41.4 fL 38.5-51.6 54697-1) RDW-CV (test code = 12.1 % 12.1-15.4 788-0) PLT (test code = See_Comment [Automated 777-3) message] The sy stem which generated this result transmitted reference range : 150 - 328 10*3/ ?L. The reference r jolanta was not used to interpret this result as normal/abnormal . MPV (test code = 11.2 fL 9.8-13.0 26836-1) NRBC/100 WBC (test See_Comment [Automat ed code = 1336970327) message] The system which generated this result transmitted reference range : 0.0 - 10.0 /100 WBCs. The refer ence range was not u sed to interpret th is result as normal/abnormal . NRBC x10^3 (test code See_Comment [Auto mated = 1084067334) message] The s ystem which generated this result transmitted reference range : 10*3/?L. The reference range was not used to interpret this result as normal/abnormal . GRAN MAT (NEUT) % 65.9 % (test code = 770-8) IMM GRAN % (test code 1.10 % = 5892083945) LYMPH % (test code = 23.6 % 736-9) MONO % (test code = 7.5 % 5905-5) EOS % (test code = 0.7 % 713-8) BASO % (test code = 1.2 % 706-2) GRAN MAT x10^3(ANC) 4.99 10*3/uL 1.99-6.95 (test code = 5204541916) IMM GRAN x10^3 (test 0.08 10*3/uL 0.00-0.06 H code = 9817495179) LYMPH x10^3 (test code 1.79 10*3/uL 1.09-3.23 = 731-0) MONO x10^3 (test code 0.57 10*3/uL 0.36-1.02 = 742-7) EOS x10^3 (test code = 0.05 10*3/uL 0.06-0.53 L 711-2) BASO x10^3 (test code 0.09 10*3/uL 0.01-0.09 = 704-7) Lab Interpretation Abnormal (test code = 40034-8) [facility] WITH [id number] 19:37:26 Test Item Value Reference Range Interpretation Comments WBC (test code = See_Comment [Automated 6690-2) message] The sy stem which generated this result transmitted reference range : 4.20 - 10.70 10*3/?L. The reference range was not used to interpret this result as normal/abnormal . RBC (test code = See_Comment [Automated 789-8) message] The sy stem which generated this result transmitted reference range : 4.26 - 5.52 10*6/?L. The reference range was not used to interpret this result as normal/abnormal . HGB (test code = 17.2 g/dL 12.2-16.4 H 718-7) HCT (test code = 50.0 % 38.4-49.3 H 4544-3) MCV (test code = 92.4 fL 81.7-95.6 787-2) MCH (test code = 31.8 pg 26.1-32.7 785-6) MCHC (test code = 34.4 g/dL 31.2-35.0 786-4) RDW-SD (test code = 41.4 fL 38.5-51.6 68901-0) RDW-CV (test code = 12.1 % 12.1-15.4 788-0) PLT (test code = See_Comment [Automated 777-3) message] The sy stem which generated this result transmitted reference range : 150 - 328 10*3/ ?L. The reference r jolanta was not used to interpret this result as normal/abnormal . MPV (test code = 11.2 fL 9.8-13.0 94324-3) NRBC/100 WBC (test See_Comment [Automat ed code = [id number]) message] The system which generated this result transmitted reference range : 0.0 - 10.0 /100 WBCs. The refer ence range was not u sed to interpret th is result as normal/abnormal . NRBC x10^3 (test code See_Comment [Auto mated = [id number]) message] The s ystem which generated this result transmitted reference range : 10*3/?L. The reference range was not used to interpret this result as normal/abnormal . GRAN MAT (NEUT) % 65.9 % (test code = 770-8) IMM GRAN % (test code 1.10 % = [id number]) LYMPH % (test code = 23.6 % 736-9) MONO % (test code = 7.5 % 5905-5) EOS % (test code = 0.7 % 713-8) BASO % (test code = 1.2 % 706-2) GRAN MAT x10^3(ANC) 4.99 10*3/uL 1.99-6.95 (test code = 0253822090) IMM GRAN x10^3 (test 0.08 10*3/uL 0.00-0.06 H code = 4012972599) LYMPH x10^3 (test code 1.79 10*3/uL 1.09-3.23 = 731-0) MONO x10^3 (test code 0.57 10*3/uL 0.36-1.02 = 742-7) EOS x10^3 (test code = 0.05 10*3/uL 0.06-0.53 L 711-2) BASO x10^3 (test code 0.09 10*3/uL 0.01-0.09 = 704-7) Lab Interpretation Abnormal (test code = 02142-6) [facility]"
[2022-12-23] MEDS ORDERED: HYDROMORPHONE/PCA 10 MG/50 ML SYR IV PRN (10:48)
[2022-12-23] MEDS ORDERED: HYDROMORPHONE HCL 1 MG/ML INJ IV PRN (10:51)
[2022-12-23] MEDS: HYDROMORPHONE HCL 1 MG/ML INJ ONE ×4 (10:52→11:29)
[2022-12-23] MEDS ORDERED: NALOXONE 0.4 MG/ML VIAL IV PRN (10:55)
[2022-12-23] MEDS ORDERED: ACETAMINOPHEN 325 MG TABLET PO PRN (11:05)
--- NOTE | 2022-12-23 11:06 | P.CNS ---
Date of Consult: 12/23/22 Requesting Physician: Alec Warren Chief Complaint: Right hip pain\osteoarthritis. History of Present Illness: Patient is a 57-year-old male with a past medical history significant for hypertension, obesity, GERD, sleep apnea, RLS, osteoarthritis who presents for a planned procedure with his orthopedic surgeon. Patient has been having pain on his right hip due to right hip osteoarthritis for quite some time now. Patient has attempted conservative management as well as pain medication but pain continues to worsen over time. Patient rated right hip pain before procedure as 8/10 in severity and described pain as aching in quality. Patient agreed with his surgeon to perform a right hip arthroplasty. Patient successfully had the procedure today. Patient denies any other signs or symptoms. Symptoms are aggravated or relieved by nothing. Patient currently resting in bed. - Past Medical/Surgical History Diabetic: No -: Acid reflux -: Sleep Anpea -: Restless leg symdrome -: neck, plate -: left carpal tunnel -: foot bone spur removal -: cholecystectomy - Family History Father Medical History: Heart disease, Hypertension, Diabetes, Cancer Notes: lung cancer Mother Medical History: Heart disease, Hypertension - Social History Smoking Status: Unknown if ever smoked Alcohol use: No CD- Drugs: No Caffeine use: Yes Place of Residence: Home <Mikey Guidry - Last Filed: 12/23/22 12:40> <Enmanuel Hunt - Last Filed: 12/23/22 23:50> Allergies No Known Allergies Allergy (Verified 12/19/22 08:52) Home Medications: Fluticasone [Flonase 50mcg Nasal Vina] 2 sprays NS DAILY 12/19/22 Lansoprazole [Prevacid] 30 mg PO DAILY 12/19/22 Ropinirole HCl [Requip] 1 mg PO BEDTIME 12/19/22 Review of Systems General: Unremarkable Eyes: Unremarkable ENT: Unremarkable Respiratory: Unremarkable Cardiovascular: Unremarkable Gastrointestinal: Unremarkable Genitourinary: Unremarkable Musculoskeletal: Other (Right hip pain.) Integumentary: Unremarkable Neurological: Unremarkable Lymphatics: Unremarkable <Mikey Guidry - Last Filed: 12/23/22 12:40> Physical Examination Temp Pulse Resp BP Pulse Ox 98.5 F 108 H 18 151/83 H 12/23/22 10:58 12/23/22 10:58 12/23/22 10:58 12/23/22 10:58 General: Alert, In no apparent distress, Oriented x3, Cooperative HEENT: Atraumatic, PERRLA, Mucous membr. moist/pink, EOMI, Sclerae nonicteric Neck: Supple, 2+ carotid pulse no bruit, No LAD, Without JVD or thyroid abnormality Respiratory: Clear to auscultation bilaterally, Normal air movement Cardiovascular: No edema, Regular rate/rhythm, Normal S1 S2 Capillary refill: <2 Seconds Gastrointestinal: Normal bowel sounds, Soft and benign, Non-distended, No tenderness Musculoskeletal: No clubbing, No contractures, Tenderness Integumentary: No rashes, Other (Right hip incision ) Neurological: Normal speech, Normal tone, Normal affect Lymphatics: No axilla or inguinal lymphadenopathy <Mikey Guidry - Last Filed: 12/23/22 12:40> Temp Pulse Resp BP Pulse Ox 97.1 F 102 H 17 132/58 L 93 12/23/22 20:00 12/23/22 20:00 12/23/22 20:00 12/23/22 20:00 12/23/22 20:00 Laboratory Data (last 24 hrs) 12/23/22 16:59: Hgb 16.1, Hct 47.2 12/23/22 12:11: Phosphorus 2.5, Magnesium 2.0 12/23/22 12:11: Hgb 16.1, Hct 46.8 <Enmanuel Hunt - Last Filed: 12/23/22 23:50> Conclusions/Impression: --Right hip pain. Status post right total hip arthroplasty. Orthopedic surgeon on board. PT eval and treat. Patient placed on pain pump. Continue supportive care. --GERD. Continue Protonix . -- RLS. Continue ropinirole. --Sleep apnea. Patient placed on CPAP every bedtime. --Hypertension. Poorly controlled. Continue home medications and labetalol as needed. --CKD 2. Baseline functions unknown. We will continue to monitor renal functions. --Obesity. Likely secondary to excess calories intake. Patient counseled on weight reduction, diet and excise therapy. --Chronic pain syndrome. We will manage pain with current pain medication regimen. --DVT prophylaxis with SCDs. Continue chemical prophylaxis in a.m. Physician Review: Patient Assessed, Agree with Above Assessment and Plan Critical Care: No <Mikey Guidry - Last Filed: 12/23/22 12:40> Physician Review: Patient Assessed, Agree with Above Assessment and Plan <Enmanuel Hunt - Last Filed: 12/23/22 23:50>
--- NOTE | 2022-12-23 11:11 | OP ---
Date of Procedure: 12/23/2022 Surgeon: Alec Warren MD Preoperative Diagnosis: Severe right hip arthritis. Postoperative Diagnosis: Severe right hip arthritis. Procedure: Right total hip arthroplasty using the [place] system. Estimated Blood Loss: 200 cc. Complications: There were no complications. Indications For Operation: Mr. Hernadez is a 57-year-old gentleman, who unfortunately had debilitating p ain in his right hip. This is making it nearly impossible for him to work and ambulate. X-rays demo nstrate severe arthritic changes, although he is quite young. Risks, benefits, and alternatives to t otal hip arthroplasty have been discussed with him. He states he understands things as presented and wishes to proceed. Description Of Procedure: The patient was taken to the operating room and placed in supine position. General anesthesia was obtained by staff. Following this, he was then rolled left side down with a n axillary roll. He was then positioned properly using hip positioner. His right lower extremity wa s then prepped and draped in the usual sterile fashion. This was somewhat difficult to do because ne manuel he has essentially very very little hip mobility with regard to internal and external rotation a s well as abduction, but he does have good flexion. Extension is limited to -5 degrees when under an esthesia. After he was prepped and draped, a standard posterior long incision was taken down careful ly through skin and soft tissues. Meticulous hemostasis being maintained using Bovie electrocautery. This leads down to the fascia. A small stab wound was made in the fascia, which demonstrates the p osition of the gluteal tendon. This was then carried gently near the tip of the greater trochanter. When this was encountered, the gluteus avery muscles were split in line with the fibers, which all owed for visualization of the greater trochanter and bursa. The sciatic nerve was palpated and prote cted. The bursa was removed. It should be noted that because the patient's size, visualization is s lightly difficult and great care was taken to avoid injury to pertinent structures. After the bursa was mostly removed, the external rotators and capsule were then taken down carefully and tagged for l ater repair with care being made to protect the gluteus medius and abductors. The labrum posteriorly and superiorly was easily seen and was removed using a combination of rongeur, curved osteotome and Bovie. The hip was then dislocated, which was somewhat difficult because of how tight he is, but it was brought to the operative field. It was then protected underneath with a Hohmann to elevate the n santos and a slightly shorter than standard neck cut was then performed to allow for better visualizatio n. The head itself was nearly completely misshapen. It was then sized with ring gauges size of 50. The remainder of the labrum was then removed using acetabular retractors as well as soft tissues wit hin the hip. The hip was then deepened using a small reamer until near the floor of the true acetabu lum. It was then sequentially reamed up to a size 53. After this, the cup was then. DICTATION ENDS HERE. /DAKOTA Voice ID: [id number] Report ID: [id number]
[2022-12-23] MEDS ORDERED: LIDOCAINE 1% MPF 5 ML VIAL ONE (11:25)
[2022-12-23] MEDS ORDERED: BUPIVACAINE 0.5% PF 10 ML VIAL ONE (11:26)
[2022-12-23] MEDS ORDERED: EPINEPHRINE/PF 1 MG/ML AMP ONE (11:26)
[2022-12-23 12:16] LABS: Hematocrit 46.8 % (39.6-49.0)
[2022-12-23 12:33] LABS: Phosphorus 2.5 mg/dL (2.5-4.9)
[2022-12-23] MEDS ORDERED: LABETALOL 20 MG/4ML SYRINGE IV PRN (12:38)
[2022-12-23] MEDS ORDERED: FLUTICASONE 50MCG NASAL SPRAY NAS SCH (13:00)
[2022-12-23] MEDS: CEFAZOLIN 1 GM in NA CHLORIDE 0.9% 50 ML IVPB SCH ×2 (13:14→17:39)
[2022-12-23 17:17] LABS: Hematocrit 47.2 % (39.6-49.0)
[2022-12-23 19:50] VITALS: BMI 37.5
[2022-12-23] MEDS ORDERED: ROPINIROLE HCL 1 MG TAB PO SCH (21:00)
[2022-12-23] MEDS ORDERED: HYDROCODONE/APAP 5/325 MG TAB PO PRN (22:09)
[2022-12-24] MEDS: CEFAZOLIN 1 GM in NA CHLORIDE 0.9% 50 ML IVPB SCH (00:29)
[2022-12-24 03:50] LABS: Absolute Lymphocytes (CBC) 0.9 K/uL (0.7-4.9); Hematocrit 42.1 % (39.6-49.0); Lymphocytes % 7.1 % (15.3-44.8); MCV 93.2 fL (80-100); MPV 9.2 fL (7.6-11.3); RBC Red Blood Cell Count 4.52 M/uL (4.33-5.43)
[2022-12-24 03:59] LABS: Potassium 4.7 mmol/L (3.5-5.1)
[2022-12-24] MEDS: HYDROMORPHONE HCL 1 MG/ML INJ IV PRN ×3 (04:34→11:39)
[2022-12-24] MEDS ORDERED: HOME MED 1 EA UNK (Lansoprazole [Prevacid] 30 MG Capsule.Dr) PO SCH (09:00)
[2022-12-24] MEDS ORDERED: PANTOPRAZOLE 40MG TABLET PO SCH (09:00)
[2022-12-24] MEDS ORDERED: ENOXAPARIN 40 MG/0.4 ML SQ SCH (09:00)
[2022-12-24 10:10] VITALS: O2SAT 96
[2022-12-24 12:24] VITALS: BP 146/60; TEMP 99
--- NOTE | 2022-12-24 15:48 | P.PN ---
Subjective Date of Service: 12/24/22 Chief Complaint: Right hip pain\osteoarthritis. He did well overnight. He required very little IV hydromorphone and was transitioned from the hydromorphone PURCHASING INTERN to PO hydrocodone-acetaminophen. He has been up and ambulatory. He reports mild hip pain, but otherwise states that he feels well. Review of Systems 10-point ROS is otherwise unremarkable Musculoskeletal: Leg Pain (right hip pain) Physical Examination - Vital Signs Temperature: 99.0 F Blood Pressure: 146/60 Pulse: 95 Respirations: 16 Pulse Ox (%): 93 - Physical Exam General: Alert, In no apparent distress, Oriented x3 HEENT: Atraumatic, EOMI, Sclerae nonicteric Neck: JVD not distended Respiratory: Clear to auscultation bilaterally, Normal air movement Cardiovascular: No edema, Regular rate/rhythm, No gallops, No rubs, No murmurs Gastrointestinal: Normal bowel sounds, Soft and benign, No tenderness Musculoskeletal: No clubbing Integumentary: No rashes Neurological: Normal speech, Normal affect - Studies Laboratory Data (last 24 hrs) 12/24/22 02:50: Sodium 136, Potassium 4.7, BUN 20 H, Creatinine 1.16, Glucose 165 H 12/24/22 02:50: WBC 12.40 H, Hgb 14.4 D, Hct 42.1, Plt Count 217 12/23/22 16:59: Hgb 16.1, Hct 47.2 Assessment And Plan - Plan DIAGNOSES: # Right Hip Osteoarthritis s/p Right Total Hip Arthroplasty # Post-Operative Pain with history of Chronic Pain Syndrome # Suspect Reactive Leukocytosis # Hypertension # Obstructive Sleep Apnea # Restless Leg Syndrome # Gastroesophageal Reflux Disease # Obesity - BMI 37.6 kg/m2 RECOMMENDATIONS: - He is doing well today and was transitioned off of IV hydromorphone PURCHASING INTERN - Continue with PO hydrocodone-acetaminophen, can utilize IV hydromorphone for breakthrough pain if needed - Continue PT evaluation - would likely benefit from Home Health services - There is a mild elevation in his WBC, possibly secondary to reactive leukocytosis from pain - No clear evidence of infection - CBC should be rechecked when he follows up in clinic - Continue home medications - Disposition planning per primary team Thank you for this consultation. Internal Medicine will continue to follow along while hospitalized. Enmanuel Hunt M.D.
--- NOTE | 2022-12-25 12:49 | OP ---
Date of Procedure: 12/23/2022 Surgeon: Alec Warren MD Preoperative Diagnosis: Severe right hip arthritis. Postoperative Diagnosis: Severe right hip arthritis. Procedure: Right hip total hip arthroplasty using the [place] system. Estimated Blood Loss: 200 cc. Complications: There were no complications. Indications For Operation: Mr. Hernadez is a 57-year-old gentleman, who unfortunately had debilitating p ain in his right hip. This is making it nearly impossible for him to work and ambulate. X-rays demo nstrated severe arthritic changes, although he is quite young. Risks benefits, and alternatives of t otal hip arthroplasty had been discussed with the patient. He states he understands things as presen mona and wishes to proceed. Description Of Procedure: The patient was taken to the operating room, placed in supine position. G eneral anesthesia was easily obtained by Anesthesia staff. Following this, he was then rolled left s shirley down with an axillary roll. He was then positioned properly using hip positioner. All his bony prominences being checked. His right lower extremity was then prepped and draped in the usual steril e fashion. This was somewhat difficult because he has essentially very variable hip mobility with re armando to internal and external rotation as well as abduction. He does have good flexion. Extremity e xtension is limited to -5 degrees when under anesthesia. After he is prepped and draped, a standard posterolateral incision was taken down carefully through skin and soft tissues. Meticulous hemostasi s being maintained using Bovie electrocautery. This leads down to the fascia. A small stab wound wa s made in the fascia, which demonstrated position of gluteal tendon. This was then carried gently to the fascial incision, then carried gently near the tip of the greater trochanter. This was then cur guillermo gently backward. The gluteus avery were split in line with the fibers, which allowed for visua lization of the greater trochanter and bursa. The sciatic nerve was palpated and protected. The bur sa was removed. It should be noted because the patient's size, visualization is slight difficulty an d great care was made to avoid pertinent structures. After the bursa was mostly removed, the externa l rotators and capsule were then taken down carefully and tagged for later repair with care being mad e to protect the gluteus medius and abductors. The labrum is seen posteriorly and superiorly and was taken down using combination of rongeur, curved osteotome and Bovie. The hip was then dislocated, w hich was somewhat difficult because of the size and tightness of the patient, but it was brought into the operative field. It was then protected with Hohmann to elevate the neck. Slightly shorter than normal standard neck cut was performed to allow for better visualization. The head itself was very misshapen. It was sized with ring gauges to a size of 50. The remainder of the labrum was then shantell guillermo using acetabular retractors as well as soft tissues being removed within the acetabulum. The hip was then deepened using a small reamer until near the floor of the true acetabulum. It was then seq uentially reamed up to a size 53. After this, the cup was then placed in standard fashion and appear s to be to hold well. Attention was then turned to the femur and box car checker was then used to establi sh a lateral starting point. The initial canal-finding reamer was placed. It was followed by bunny cortez of a broach. It was somewhat tight. He does have very tight cortices and the thought is that we should go ahead and obtain an x-ray for judging of the sizes. I do know that this is somewhat small er than we will eventually need; however, one at least get an idea of the relative size related to th e initial broach as well as assess the position of the acetabulum. X-rays were reviewed, which revea led the acetabulum could be seated down a slightly better what appeared to be in good position. The broach was obviously too small. The trial broach was then removed as further broached up with anothe r x-ray being taken, which demonstrated that we could probably put in 1 larger size, which was then d one in the femur. After this, the acetabulum was slightly tapped using a secondary impactor. The li ner was then placed within the acetabulum. After this, the final hip stem was then placed. It appea rs to seat identically to the broach. The hip was then trialed and appears to locate easily. We are using a high offset stem. It is stable to full flexion, full adduction, and internal rotation to at least 40 degrees. This was selected at the implant as he does have extension to slightly past neutr al as well as good internal and external rotation. There was no lateral or inferior shuck. It shoul d be noted that we did trial with 1 longer and 1 shorter and this appeared to be the best fit. After this, the final ball was then placed. It was checked. It is the same degree of stability. After t his, the external rotators and capsule were then repaired back to the greater trochanter via bone el cynthia. The wound was irrigated and the fascia was closed with heavy Vicryl sutures followed by irriga tion and closure of the skin using Vicryl followed by natalee. The patient was then placed in Aquace l dressing, awakened, and taken to the recovery room. /DAKOTA Voice ID: [id number] Report ID: [id number]
== END 2022-12-24 15:40 | disposition home health service (06) ==
LOC: OR 06:10 → 4TH 10:41
PROVIDERS: ADMIT Orthopaedic Surgery; ATTEND Orthopaedic Surgery
PROC: 0SR90JA Replacement of Right Hip Joint with Synthetic Substitute, Uncemented, Open Approach (ICD-10-PCS; principal; 2022-12-23 07:00)
DX: M16.11 Unilateral primary osteoarthritis, right hip (principal); K21.9 Gastro-esophageal reflux disease without esophagitis; I10 Essential (primary) hypertension; G47.30 Sleep apnea, unspecified; N18.2 Chronic kidney disease, stage 2 (mild); E66.9 Obesity, unspecified; Z68.37 Body mass index [BMI] 37.0-37.9, adult; G89.4 Chronic pain syndrome; G25.81 Restless legs syndrome
CPT/HCPCS: 93005; 85025 ×2; 80048; 36415 ×4; 86900; 83735; 86850; 84100; 85610; 86901; 88305; 88311; 85730; 85018 ×2; 85014 ×2; 81003; 80053; 71046; 73501; 97116 ×4; 97161; 87811; 27130; J2704; J0171; J2001 ×2; J2370; J1650; J2250; J3010 ×2; J1100 ×2; J1170 ×7; J7120 ×2; J2405; J0690 ×3; G0378; G0379